=== PATIENT | male | born 1965 | race Caucasian/White ===

== ENCOUNTER 2019-10-13 08:39 | Observation (INO) ==
--- NOTE | 2019-10-13 08:49 | Emergency Department Note ---
ED Disposition Clinical Impression: Angina pectoris Disposition: Admitted as Observation Condition on Discharge: Good Referrals: Provider,Referral, [Referring] - - Critical Care Critical Care Time: No Attestation: On , the high probability of a clinically significant, sudden or life threatening deterioration of the following system(s) required my full and direct attention, intervention and personal management. The time I documented below is in addition to time spent performing reported procedures but includes the following listed in this critical care notation. Medical Decision Making - Malcolm Inquiry Pt receiving controlled substance: No Vital Signs: 10/13/19 08:49 10/13/19 09:24 10/13/19 09:44 Temperature 98.7 F Temperature Source Oral Pulse Rate [Right Radial] 91 H 81 79 Respiratory Rate 18 Blood Pressure [Right Arm] 146/85 H 128/76 134/84 Blood Pressure Mean [Right Arm] 105 93 100 Blood Pressure Source [Right Arm] Automatic Cuff Automatic Cuff Automatic Cuff Blood Pressure Position [Right Arm] Sitting Sitting Sitting 02 Sat by Pulse Oximetry 97 94 L 95 Oxygen Delivery Method Room Air Room Air 10/13/19 11:20 Temperature Temperature Source Pulse Rate [Right Radial] 82 Respiratory Rate Blood Pressure [Right Arm] 126/80 Blood Pressure Mean [Right Arm] 95 Blood Pressure Source [Right Arm] Automatic Cuff Blood Pressure Position [Right Arm] Sitting 02 Sat by Pulse Oximetry 96 Oxygen Delivery Method Room Air - Lab Data Lab Results 10/13/19 08:45: WBC 8.9, RBC 5.94, Hgb 17.6, Hct 52.7 H, MCV 88.8, MCH 29.6, MCHC 33.4, RDW 13.6, Plt Count 212, MPV 10.2, Neut % (Auto) 67.4, Lymph % (Auto) 20.4, Clinch % (Auto) 5.4, Eos % (Auto) 5.9, Baso % (Auto) 0.9, Neut # (Auto) 6.0, Lymph # (Auto) 1.8, Clinch # (Auto) 0.5, Eos # (Auto) 0.5 H, Baso # (Auto) 0.1 10/13/19 08:45: Sodium 141, Potassium 4.1, Chloride 100, Carbon Dioxide 30, Anion Gap 15.1 H, BUN 13, Creatinine 1.48 H, Estimated Creat Clear 73, Estimated GFR 50 L, Est GFR ( Amer) 60, Glucose 180 H, Calcium 9.9, Troponin I < 0.02 10/13/19 12:00: Troponin I < 0.02 Result diagrams: 10/13/19 08:45 10/13/19 08:45 Orders (Tests/Meds): ED MEDICATIONS Discontinued Medications Generic Name Dose Route Start Last Admin Trade Name Daina PRN Reason Stop Dose Admin Aspirin 324 mg 10/13/19 08:58 10/13/19 09:05 Aspirin 81mg Chewable Tablet PO 10/13/19 08:59 324 mg ONCE ONE Administration ORDERS Category Date Time Status Troponin I Q3H Lab 10/13/19 15:00 Ordered - Radiology Data #1 Image(s): Chest Image Reviewed: Yes I reviewed the patient's radiology image atelect vs scar bases. s/p sternotomy/CABG - ECG Data Tracing #1 EKG interpreted by Chris Reynoso MD: Rhythm: sinus Rate: 83 [place]: normal Ectopy: Premature ventricular contraction Conduction: First-degree AV block ST Segment Changes: none T Wave Changes: none Q Waves: Inferior No evidence of acute ischemia or injury Baseline artifact present, but I consider the EKG adequate for accurate interpretation. No prior EKGs available for comparison. - Physician Consults Physician Consulted: RICHA Osorio, for Dr. Beal Time: 09:51 Reason -: Cardiology Eval/Care Comment/Response: To see patient in the emergency department. Patient seen by Edu who discussed case with Dr. Beal. Recommends second troponin, if negative, discharge to follow-up in their office next week. 12:00 PM: Edu returns to the emergency room. States Dr. Beal has reviewed patient's previous cath results and history and now feels he should get a cardiac catheterization. Patient agreeable. Edu request patient be admitted. Additional Consult: Farhan Time: 12:30 Reason -: Admission Comment/Response: Agrees to admit the patient to the hospital. We discussed the patient's clinical information, including history, exam, laboratory and radiology results and ED course. Per hospital procedure, I will write temporary bridge inpatient orders on the patient. Specific orders requested by the admitting physician: No antibiotics. Likely atelectasis. Medical Decision Narrative: Prior left heart catheterization: ANGIOGRAPHIC RESULTS: 1. The left main artery normal 2. The left anterior descending artery proximally has 30% stenoses and is then occluded immediately after medium sized first diagonal artery. The first diagonal artery has a proximal concentric 60% stenosis this is a 1.5 to 2 mm first diagonal artery. 3. The ramus intermedius is a 1.5 to 2 mm vessel and has mild luminal irregularities 4. The circumflex artery is a dominant vessel and gives rise to a small first obtuse marginal artery. The terminal obtuse marginal arteries long vessel and has a long concentric 70-80% stenosis at a 2 mm vessel. Distal to this area is a small stent which is patent. The terminal obtuse marginal arteries a long vessel 5 small in caliber. 5. The right coronary artery is probably codominant and proximally subtotally occluded 6. The HARRELL ventriculogram reveals mild left ventricular dilatation with reduced ejection fraction estimated at 40-45% 7. The left ventricular end-diastolic pressure 15 mmHg 8. The left internal mammary artery is a widely patent graft to the mid LAD. The remaining LAD is free of significant disease 9. The saphenous vein graft the circumflex artery is ostially occluded 10. The saphenous vein graft to the right coronary artery is a widely patent graft and supplies a long narrow caliber posterior descending artery IMPRESSION: 1. Coronary artery disease as described above 2. 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 Disease in a small diagonal artery and small caliber long terminal obtuse marginal artery 4. Mildly reduced ejection fraction 5. Normal to mildly elevated LVEDP PLAN: 1. Medical management 2. Risk factor modification 3. Maximize antianginal's <Electronically signed by Eleazar Beal MD in [place]> 08/18/17 0926 DAMIAN / KIA AT 0842 AT 0918 General Adult HPI - General Chief complaint: Chest Pain Stated complaint: CP Time Seen by Provider: 10/13/19 08:54 - History of Present Illness HPI narrative: States he developed chest pain at 1 AM. It woke him from sleep. It feels like pressure. He is chronically short of breath and his shortness of breath did not change. Nausea, but no vomiting. No diaphoresis or radiation. No treatment prior to arrival. States his chest pain has currently resolved, it went away about 7:30 AM. Prior to that it had been constant since onset. Also states that he has had a chest cold for couple of days, minimally productive cough without fever. Has coronary artery disease with prior [place], bypass surgery and multiple stents. He says he has had stents put in 3 or 4 times since his bypass surgery in 2012. He sees Dr. Beal. - Related Data Home Medications Medication Instructions Recorded Confirmed albuterol sulfate 90 mcg/actuation 2 puff INHALATION Q4H g 08/27/17 10/13/19 aerosol inhaler aspirin 81 mg tablet,delayed 81 mg PO QDAY 08/27/17 10/13/19 release clopidogrel 75 mg tablet 75 mg PO QDAY 08/27/17 10/13/19 esomeprazole magnesium 20 mg 20 mg PO QDAY cap 08/27/17 10/13/19 capsule,delayed release fenofibrate 54 mg tablet 54 mg PO QDAY 08/27/17 10/13/19 fluticasone 500 mcg-salmeterol 50 1 inh INHALATION Q12H 08/27/17 10/13/19 mcg/dose blistr powdr for inhalation furosemide 20 mg tablet 20 mg PO QDAY 08/27/17 10/13/19 glipizide 5 mg tablet, extended 5 mg PO QDAY 08/27/17 10/13/19 release 24 hr isosorbide mononitrate 30 mg 30 mg PO QDAY tab 08/27/17 10/13/19 tablet,extended release 24 hr magnesium 200 mg tablet 400 mg PO QDAY tab 08/27/17 10/13/19 metoprolol tartrate 50 mg tablet 50 mg PO BID 08/27/17 10/13/19 omega-3 fatty acids-fish oil 360 1 cap PO QDAY 08/27/17 10/13/19 mg-1,200 mg capsule rosuvastatin 20 mg tablet 20 mg PO QDAY 08/27/17 10/13/19 tiotropium bromide 18 mcg capsule 1 cap INHALATION QDAY 08/27/17 10/13/19 with inhalation device Azithromycin [Z-Reese 250mg Tab*] 250 mg PO UD DOSE PK 10/13/19 10/13/19 Fluticasone Propionate [Flonase 2 spr NS DAILY 10/13/19 10/13/19 50mcg nasal spray 16gm] Allergies Allergy/AdvReac Type Severity Reaction Status Date / Time Penicillins Allergy Verified 12/28/17 15:05 pcn Allergy Unknown Uncoded 08/18/17 15:13 [facility] History - Hepatitis A Screen Attestation statement:: This patient has been screened for Hepatitis A risk factors. I have reviewed the patient's past medical history: Yes Medical History: Reports:: Coronary Artery Disease, Diabetes Mellitus Type 2, Hypertension Comment: Chest Pain Laterality Cases: Bilateral: Other Other Surgeries: Yes: Angioplasty - Social History Smoking Status: Former smoker Alcohol Intake: never Alcohol Intake Frequency:: a few times a month Occupational Status: other Housing: house Family Hx:: Heart Attack, Coronary Artery Disease ROS Obtained: Yes All systems reviewed & no additional complaints - Constitutional Constitutional: Denies fever(s) - Cardiovascular Cardiovascular: Reports chest pain, Denies diaphoresis, Denies radiating jaw, neck or arm pain - Respiratory Respiratory: Yes cough, Yes dyspnea (Chronic), No pain with cough - Gastrointestinal Gastrointestingal: Reports: nausea. Denies: abdominal pain, diarrhea, vomiting Physical Exam - General General appearance: alert, in no apparent distress - Head Head exam: atraumatic, normocephalic - Eye Eye exam: Present: normal appearance, EOMI - ENT ENT exam: Present: mucous membranes moist - Neck Neck exam: Present: normal inspection, trachea midline - Chest Chest inspection: Present: normal inspection, symmetric chest wall rise - Respiratory Respiratory exam: Present: normal lung sounds bilaterally. Absent: respiratory distress - Cardiovascular Cardiovascular exam: Present: regular rate, normal rhythm, normal heart sounds, other (Sternotomy scar) - Abdominal Exam Abdominal exam: Present: soft. Absent: distention, tenderness - Extremities Exam Extremities exam: Present: normal inspection. Absent: pedal edema, calf tenderness - Neurological Exam Neurological exam: Present: alert, oriented X3 - Psychiatric Psychiatric exam: Present: normal affect, normal mood - Skin Skin exam: Present: warm, dry
[2019-10-13 09:13] LABS: Basophils # 0.1 K/mm3 (0-0.2); Basophils % 0.9 % (0.1-2.0); Eosinophils # 0.5 K/mm3 (0.0-0.4); Eosinophils % 5.9 % (0.1-12.0); Hematocrit 52.7 % (42.0-52.0); Hemoglobin 17.6 g/dL (14.1-18.0); Lymphocytes # 1.8 K/mm3 (0.7-4.5); Lymphocytes % 20.4 % (10-50); Mean Corpuscular HGB Conc 33.4 g/dL (31.8-35.4); Mean Corpuscular Volume 88.8 fl (80-94); Mean Platelet Volume 10.2 fl (7.4-10.4); Monocytes # 0.5 K/mm3 (0.1-1.0); Monocytes % 5.4 % (1.7-9.3); Neutrophils % 67.4 % (37.0-80.0); Platelet Count 212 K/mm3 (142-424); Red Blood Count 5.94 M/mm3 (4.60-6.20); Red Cell Distribution Width 13.6 % (11.5-17.5); White Blood Count 8.9 K/mm3 (4.8-10.8)
[2019-10-13 09:21] LABS: Anion Gap 15.1 mEq/L (5-15); Blood Urea Nitrogen 13 mg/dL (7-18); Calcium 9.9 mg/dL (8.5-10.1); Carbon Dioxide 30 mmol/L (21.0-32.0); Chloride 100 mmol/L (98-107); Glucose 180 mg/dL (74-106); Sodium 141 mmol/L (137-145)
--- NOTE | 2019-10-13 10:57 | Consult Report ---
History of Present Illness Consult date: 10/13/19 Consult reason: chest pain Chief complaint: chest pain Additional Medical History:: 1. CAD A. CABG X 4 in 2012 B. coronary stenting in 2013, 2014 and 2015 C. [facility], 07/2017 ANGIOGRAPHIC RESULTS: 1. The left main artery normal 2. The left anterior descending artery proximally has 30% stenoses and is then occluded immediately after medium sized first diagonal artery. The first diagonal artery has a proximal concentric 60% stenosis this is a 1.5 to 2 mm first diagonal artery. 3. The ramus intermedius is a 1.5 to 2 mm vessel and has mild luminal irregularities 4. The circumflex artery is a dominant vessel and gives rise to a small first obtuse marginal artery. The terminal obtuse marginal arteries long vessel and has a long concentric 70-80% stenosis at a 2 mm vessel. Distal to this area is a small stent which is patent. The terminal obtuse marginal arteries a long vessel 5 small in caliber. 5. The right coronary artery is probably codominant and proximally subtotally occluded 6. The HARRELL ventriculogram reveals mild left ventricular dilatation with reduced ejection fraction estimated at 40-45% 7. The left ventricular end-diastolic pressure 15 mmHg 8. The left internal mammary artery is a widely patent graft to the mid LAD. The remaining LAD is free of significant disease 9. The saphenous vein graft the circumflex artery is ostially occluded 10. The saphenous vein graft to the right coronary artery is a widely patent graft and supplies a long narrow caliber posterior descending artery IMPRESSION: 1. Coronary artery disease as described above 2. 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 Disease in a small diagonal artery and small caliber long terminal obtuse marginal artery 4. Mildly reduced ejection fraction 5. Normal to mildly elevated LVEDP PLAN: 1. Medical management 2. Risk factor modification 3. Maximize antianginal's 2. DM, type 2 3. HTN 4. HLD 5. Ex smoker A. CTA of the chest, 2013, was negative for PE. It did have the following findings: FINDINGS: Imaging of the lower neck and axilla is unremarkable. Patient is status post median sternotomy apparently for a MARTINEZ takedown. Coronary artery stent is also noted. Heart size within normal limits. Thoracic aorta is unremarkable. There are scattered normal sized noncalcified lymph nodes within the mediastinum and william are also mildly enlarged lymph nodes including left lower hilum, subcarinal, position, right mid hilum. Limited imaging of the upper abdomen is notable for fatty infiltration of the liver and borderline splenomegaly. Benign cyst noted on the right kidney. No evidence of aggressive osseous process. Enhancement of the pulmonary arteries is suboptimal. I see no evidence of ulnar emboli.. There is scattered irregular areas of ground glass disease throughout the entirety of the right lung field but most prominently within the right upper lobe. There is also occasional small nodular disease. There are some minimal scattered areas of ground glass disease in the left lung field. No pleural effusions. IMPRESSION: 1. No evidence of pulmonary emboli. 2. Status post CABG and coronary artery stenting. 3. Predominantly groundglass airspace disease throughout the right lung field with minimal disease left lung field. Occasional small nodular disease in the right lung field. Appearance is most suggestive of infectious/inflammatory pneumonitis/pneumonia. Recommend clinical and laboratory correlation 4. Enlarged hilar, and subcarinal lymphadenopathy. Probably reactive, related to the airspace disease. Recommend followup enhanced CT the chest in about 2 months after a period therapy for presumed infectious pneumonia. 5. Borderline splenomegaly and fatty infiltration of the liver noted. 6. ABnormal EKG, first degree AV block with inferior infarct pattern History of present illness: States he developed chest pain at 1 AM. It woke him from sleep. It feels like pressure. He is chronically short of breath and his shortness of breath did not change. Nausea, but no vomiting. No diaphoresis or radiation. No treatment prior to arrival. States his chest pain has currently resolved, it went away about 7:30 AM. Prior to that it had been constant since onset. Also states that he has had a chest cold for couple of days, minimally productive cough without fever. Has coronary artery disease with prior [place], bypass surgery and multiple stents. He says he has had stents put in 3 or 4 times since his bypass surgery in 2013. He sees Dr. Beal. The above per Dr. Reynoso Denies any recent exertional symptoms. [facility] History Medical History: Reports:: Coronary Artery Disease, Diabetes Mellitus Type 2, Hypertension Denies:: Diabetes Mellitus Type 1 *Have you ever received a pneumonia vaccine?: Yes *Have you received a flu vaccine this season?: No Laterality Cases: Bilateral: Other Other Surgeries: Yes: Angioplasty - *Social History Smoking Status: Former smoker Tobacco Type: cigarettes Alcohol Intake: never Alcohol Intake Frequency:: a few times a month *Occupational Status:: employed Housing: house *Travel in the last 8 weeks: None Family Hx:: Heart Attack, Coronary Artery Disease Meds Home Medications Medication Instructions Recorded Confirmed Type albuterol sulfate 90 mcg/actuation 2 puff INHALATION Q4H g 08/27/17 10/13/19 History aerosol inhaler aspirin 81 mg tablet,delayed 81 mg PO QDAY 08/27/17 10/13/19 History release clopidogrel 75 mg tablet 75 mg PO QDAY 08/27/17 10/13/19 History fenofibrate 54 mg tablet 54 mg PO QDAY 08/27/17 10/13/19 History fluticasone 500 mcg-salmeterol 50 1 inh INHALATION Q12H 08/27/17 10/13/19 History mcg/dose blistr powdr for inhalation furosemide 20 mg tablet 20 mg PO QDAY 08/27/17 10/13/19 History glipizide 5 mg tablet, extended 5 mg PO BID 08/27/17 10/13/19 History release 24 hr isosorbide mononitrate 30 mg 30 mg PO QDAY tab 08/27/17 10/13/19 History tablet,extended release 24 hr metoprolol tartrate 50 mg tablet 50 mg PO BID 08/27/17 10/13/19 History rosuvastatin 20 mg tablet 20 mg PO QDAY 08/27/17 10/13/19 History tiotropium bromide 18 mcg capsule 1 cap INHALATION QDAY 08/27/17 10/13/19 History with inhalation device Allergies Allergy/AdvReac Type Severity Reaction Status Date / Time Penicillins Allergy Unknown Verified 10/13/19 13:54 allergy reaction Review of Systems - Review of Systems Review of systems:: pertinent systems reviewed and negative unless documented below - *Cardiovascular Reports chest pain, Denies shortness of breath - *Respiratory Denies shortness of breath - *Gastrointestinal Denies loose stools - *Genitourinary Denies blood in urine - *Musculoskeletal Denies joint pain, Denies back pain - *Neurologic Denies dizziness, Denies weakness Exam Vital signs and Labs for Last 24 Hours: Temp Pulse Resp BP Pulse Ox 98.7 F 79 18 134/84 95 10/13/19 08:49 10/13/19 09:44 10/13/19 08:49 10/13/19 09:44 10/13/19 09:44 Laboratory Results - last 24 hr 10/13/19 08:45: WBC 8.9, RBC 5.94, Hgb 17.6, Hct 52.7 H, MCV 88.8, MCH 29.6, MCHC 33.4, RDW 13.6, Plt Count 212, MPV 10.2, Neut % (Auto) 67.4, Lymph % (Auto) 20.4, Stanley % (Auto) 5.4, Eos % (Auto) 5.9, Baso % (Auto) 0.9, Neut # (Auto) 6.0, Lymph # (Auto) 1.8, Stanley # (Auto) 0.5, Eos # (Auto) 0.5 H, Baso # (Auto) 0.1 10/13/19 08:45: Sodium 141, Potassium 4.1, Chloride 100, Carbon Dioxide 30, Anion Gap 15.1 H, BUN 13, Creatinine 1.48 H, Estimated Creat Clear 73, Estimated GFR 50 L, Est GFR ( Amer) 60, Glucose 180 H, Calcium 9.9, Troponin I < 0.02 I & O for Last 24 hours: Intake & Output 10/10/19 10/11/19 10/12/19 10/13/19 11:59 11:59 11:59 11:59 Weight 200 lb - *Routine HEENT Exam Head: Present: normocephalic Eye: Present: EOMI, PERRL ENT: Present: mucous membranes moist - *Routine Neck Exam Present: supple. Absent: JVD, carotid bruit - *Routine Respiratory Exam Present: CTA bilaterally. Absent: accessory muscle use, rales, rhonchi, wheezes - *Routine Cardiovascular Exam Present: RRR. Absent: murmur, gallop, rubs - *Routine Abdominal Exam Present: soft. Absent: tenderness, distended, guarding - *Routine Extremities Exam Absent: edema, calf tenderness - *Routine Neurological Exam Present: alert, oriented X3, moving all extremities Assessment and Plan (1) Chest pain Current visit: Yes Status: Acute Category: Medical Code(s): R07.9 - Chest pain, unspecified (2) History of coronary artery bypass graft Current visit: Yes Status: Acute Category: Surgical Code(s): Z95.1 - Presence of aortocoronary bypass graft (3) History of coronary artery stent placement Current visit: Yes Status: Acute Category: Surgical Code(s): Z95.5 - Presence of coronary angioplasty implant and graft (4) Coronary arteriosclerosis Current visit: No Status: Acute Category: Medical Code(s): I25.10 - Atherosclerotic heart disease of [place] coronary artery without angina pectoris (5) Diabetes 1.5, managed as type 2 Current visit: No Status: Acute Category: Medical Code(s): E10.9 - Type 1 diabetes mellitus without complications (6) Hyperlipemia Current visit: No Status: Acute Category: Medical Code(s): E78.5 - Hyperlipidemia, unspecified - Assessment and plan all Dx Assessment and Plan for all problems:: 1. Chest pain for several hours that resolved spontaneously. Unaffected by activity or eating. Initial troponin normal and EKG without acute ST segment changes. Last cardiac cath in 2017 with recommendation for medical therapy due to small vessel disease. Discussed with Dr. Beal, after reviewing [facility], and would recommend admission for observation and cardiac cath due to significant CAD history and intervention with pt having atypical symptoms. Continue both ASA and plavix along with beta zohaib, statin and isosorbide 2. Further recommendations to follow pending above results.
--- NOTE | 2019-10-13 15:25 | Pharmacy Consult Notes ---
[facility] Pharmacy VTE Monitoring - Patient Demographics Admission date: 10/13/19 Report Date: 10/13/19 Time: 15:24 Allergies/Adverse Reactions: Patient Allergies Penicillins Allergy (Verified 10/13/19 13:54) Unknown allergy reaction Height: 1.63 m Weight: 92.136 kg Patient Problems: Current Active Problems Chest pain (Acute) History of coronary artery bypass graft (Acute) History of coronary artery stent placement (Acute) Angina pectoris (Acute ~08/17/17) - VTE Risk Labs: VTE Related Lab Results Hgb 17.6 g/dL (14.1-18.0) 10/13/19 08:45 Hct 52.7 % (42.0-52.0) H 10/13/19 08:45 Plt Count 212 K/mm3 (142-424) 10/13/19 08:45 BUN 13 mg/dL (7-18) 10/13/19 08:45 Creatinine 1.48 mg/dL (0.70-1.30) H 10/13/19 08:45 Estimated Creat Clear 73 mL/min (50-200) 10/13/19 08:45 VTE Score: 4 VTE Risk Level: Low Risk - Prophylaxis VTE Prophylaxis Ordered?: Yes Types of VTE Prophylaxis: TEDS Knee High Location of Applied Device: Bilateral Lower Extremeties Pharmacologic Type: Other (clopidogrel)
--- NOTE | 2019-10-13 16:18 | History & Physical Report ---
*Admission Date: 10/13/19 *Chief complaint: Chest tightness *History of present illness: 54-year-old male with coronary artery disease presented emergency department over 6 hours after awakening from sleep with chest tightness that was nonradiating. He has chronic dyspnea from COPD and heavy cigarette use from which he stopped in 2004. Chest pain lasted for approximately 6-1/2 hours before resolving spontaneously. In the emergency department he was symptom- free. Work-up was begun and a first troponin was negative. Cardiology was consulted and evaluated the patient in the emergency department and due to his extensive coronary artery disease history and symptoms consistent with unstable angina patient was admitted for further observation and anticipated left heart catheterization to be performed tomorrow. Currently he is chest pain-free. [facility] History I have reviewed the patient's past medical history: Yes Medical History: Reports:: Coronary Artery Disease, Diabetes Mellitus Type 2, Hypertension Denies:: Diabetes Mellitus Type 1 *Have you ever received a pneumonia vaccine?: Yes *Have you received a flu vaccine this season?: No Laterality Cases: Bilateral: Other Other Surgeries: Yes: Angioplasty - *Social History Smoking Status: Former smoker Tobacco Type: cigarettes Alcohol Intake: never Alcohol Intake Frequency:: a few times a month *Occupational Status:: employed Housing: house *Travel in the last 8 weeks: None Family Hx:: Heart Attack, Coronary Artery Disease Review of Systems - Review of Systems Review of systems:: pertinent systems reviewed and negative unless documented below - Constitutional Denies body ache(s), Denies chills, Denies fever(s), Denies headache(s), Denies night sweats, Denies weakness - ENT Reports nasal congestion - *Respiratory Reports chest congestion, Reports cough - *Gastrointestinal Denies abdominal pain - *Neurologic Denies dizziness, Denies weakness Meds Home Medications Medication Instructions Recorded Confirmed Type albuterol sulfate 90 mcg/actuation 2 puff INHALATION Q4HP PRN g 08/27/17 10/13/19 History aerosol inhaler aspirin 81 mg tablet,delayed 81 mg PO DAILY 08/27/17 10/13/19 History release clopidogrel 75 mg tablet 75 mg PO DAILY 08/27/17 10/13/19 History fenofibrate 54 mg tablet 54 mg PO DAILY 08/27/17 10/13/19 History fluticasone 500 mcg-salmeterol 50 1 inh INHALATION Q12H 08/27/17 10/13/19 History mcg/dose blistr powdr for inhalation furosemide 20 mg tablet 20 mg PO DAILYP PRN 08/27/17 10/13/19 History glipizide 5 mg tablet, extended 5 mg PO BID 08/27/17 10/13/19 History release 24 hr isosorbide mononitrate 30 mg 30 mg PO DAILY tab 08/27/17 10/13/19 History tablet,extended release 24 hr metoprolol tartrate 50 mg tablet 50 mg PO BID 08/27/17 10/13/19 History rosuvastatin 20 mg tablet 20 mg PO QDAY 08/27/17 10/13/19 History Esomeprazole Magnesium 40 mg PO DAILY 10/13/19 10/13/19 History Fluticasone Propionate 2 sprays NS DAILYP PRN 10/13/19 10/13/19 History Allergies Allergy/AdvReac Type Severity Reaction Status Date / Time Penicillins Allergy Unknown Verified 10/13/19 13:54 allergy reaction Exam Vital signs and Labs for Last 24 Hours: Temp Pulse Resp BP Pulse Ox 97.7 F 70 16 103/55 L 97 10/13/19 16:00 10/13/19 16:00 10/13/19 16:00 10/13/19 16:00 10/13/19 16:00 Laboratory Results - last 24 hr 10/13/19 08:45: WBC 8.9, RBC 5.94, Hgb 17.6, Hct 52.7 H, MCV 88.8, MCH 29.6, MCHC 33.4, RDW 13.6, Plt Count 212, MPV 10.2, Neut % (Auto) 67.4, Lymph % (Auto) 20.4, [place] % (Auto) 5.4, Eos % (Auto) 5.9, Baso % (Auto) 0.9, Neut # (Auto) 6.0, Lymph # (Auto) 1.8, [place] # (Auto) 0.5, Eos # (Auto) 0.5 H, Baso # (Auto) 0.1 10/13/19 08:45: Sodium 141, Potassium 4.1, Chloride 100, Carbon Dioxide 30, Anion Gap 15.1 H, BUN 13, Creatinine 1.48 H, Estimated Creat Clear 73, Estimated GFR 50 L, Est GFR ( Amer) 60, Glucose 180 H, Calcium 9.9, Troponin I < 0.02 10/13/19 12:00: Troponin I < 0.02 10/13/19 15:08: Troponin I < 0.02 I & O for Last 24 hours: Intake & Output 10/11/19 10/12/19 10/13/19 10/14/19 11:59 11:59 11:59 11:59 Weight 200 lb 203 lb 2 oz - *Routine HEENT Exam Head: Present: normocephalic Eye: Present: EOMI, PERRL ENT: Present: mucous membranes moist - *Routine Neck Exam Present: supple. Absent: lymphadenopathy - *Routine Respiratory Exam Comments: Distant breath sounds throughout all lung white with occasional expiratory wheeze - *Routine Cardiovascular Exam Present: RRR - *Routine Abdominal Exam Present: soft, normoactive bowel sounds. Absent: tenderness - *Routine Extremities Exam Absent: cyanosis, clubbing, edema - *Routine Skin Exam Present: warm. Absent: rash - *Routine Neurological Exam Present: alert, oriented X3 Assessment and Plan (1) Chest pain Current visit: Yes Status: Acute Category: Medical Code(s): R07.9 - Chest pain, unspecified (2) History of coronary artery bypass graft Current visit: Yes Status: Acute Category: Surgical Code(s): Z95.1 - Presence of aortocoronary bypass graft (3) History of coronary artery stent placement Current visit: Yes Status: Acute Category: Surgical Code(s): Z95.5 - Presence of coronary angioplasty implant and graft (4) Coronary arteriosclerosis Current visit: No Status: Acute Category: Medical Code(s): I25.10 - Atherosclerotic heart disease of [place] coronary artery without angina pectoris (5) Diabetes 1.5, managed as type 2 Current visit: No Status: Acute Category: Medical Code(s): E10.9 - Type 1 diabetes mellitus without complications (6) Hyperlipemia Current visit: No Status: Acute Category: Medical Code(s): E78.5 - Hyperlipidemia, unspecified - Assessment and plan all Dx Assessment and Plan for all problems:: 1. Plan for left heart catheterization tomorrow 2. Patient will be given essential home medications
--- NOTE | 2019-10-14 07:20 | Progress Note ---
Internal Medicine - PN: Subj *Date: 10/14/19 *Time: 07:19 Interval history: Patient reports feeling well. He had no chest pain or tightness overnight. He does report persistent chest congestion with cough. Cough was nonproductive overnight. He is scheduled for left heart catheterization today Exam Vital signs and Labs for Last 24 Hours: Temp Pulse Resp BP Pulse Ox 97.9 F 61 17 102/43 L 98 10/14/19 04:00 10/14/19 04:00 10/14/19 04:00 10/14/19 04:00 10/14/19 04:00 Laboratory Results - last 24 hr 10/13/19 08:45: WBC 8.9, RBC 5.94, Hgb 17.6, Hct 52.7 H, MCV 88.8, MCH 29.6, MCHC 33.4, RDW 13.6, Plt Count 212, MPV 10.2, Neut % (Auto) 67.4, Lymph % (Auto) 20.4, [place] % (Auto) 5.4, Eos % (Auto) 5.9, Baso % (Auto) 0.9, Neut # (Auto) 6.0, Lymph # (Auto) 1.8, [place] # (Auto) 0.5, Eos # (Auto) 0.5 H, Baso # (Auto) 0.1 10/13/19 08:45: Sodium 141, Potassium 4.1, Chloride 100, Carbon Dioxide 30, Anion Gap 15.1 H, BUN 13, Creatinine 1.48 H, Estimated Creat Clear 73, Estimated GFR 50 L, Est GFR ( Amer) 60, Glucose 180 H, Calcium 9.9, Troponin I < 0.02 10/13/19 12:00: Troponin I < 0.02 10/13/19 15:08: Troponin I < 0.02 10/13/19 20:24: POC Glucose 125 H 10/14/19 05:53: POC Glucose 171 H I & O for Last 24 hours: Intake & Output 10/11/19 10/12/19 10/13/19 10/14/19 11:59 11:59 11:59 11:59 Intake Total 120 / 120 Balance 120 / 120 Weight 200 lb 203 lb 2.002 oz Narrative: He looks well. Lungs have some expiratory wheezes posteriorly but anteriorly are clear. Heart has a regular rate and rhythm. Extremities have no edema Assessment and Plan (1) Chest pain Current visit: Yes Status: Acute Category: Medical Code(s): R07.9 - Chest pain, unspecified (2) History of coronary artery bypass graft Current visit: Yes Status: Acute Category: Surgical Code(s): Z95.1 - Presence of aortocoronary bypass graft (3) History of coronary artery stent placement Current visit: Yes Status: Acute Category: Surgical Code(s): Z95.5 - Presence of coronary angioplasty implant and graft (4) Coronary arteriosclerosis Current visit: No Status: Acute Category: Medical Code(s): I25.10 - Atherosclerotic heart disease of [place] coronary artery without angina pectoris (5) Diabetes 1.5, managed as type 2 Current visit: No Status: Acute Category: Medical Code(s): E10.9 - Type 1 diabetes mellitus without complications (6) Hyperlipemia Current visit: No Status: Acute Category: Medical Code(s): E78.5 - Hyperlipidemia, unspecified - Assessment and plan all Dx Assessment and Plan for all problems:: Left heart catheterization today.
--- NOTE | 2019-10-14 11:45 | Progress Note ---
Subjective Date: 10/14/19 Time: 11:00 Principal diagnosis: Chest pain Interval history: 54-year-old male admitted to [facility] for chest pain. Patient is doing well. Patient underwent a left heart catheterization this a.m. with access through the right groin. No intervention was required. We will continue medical management for his coronary artery disease. Patient is resting quietly with right leg straight. No bleeding or redness or swelling noted of the right groin area. Patient denies chest pain or shortness of breath. Instructed to leave the right leg straight due to access earlier. Patient denies cough or fever. Lung sounds are clear. Vital signs are stable. child monitor reveals sinus rhythm. ANGIOGRAPHIC RESULTS The left main artery Normal The left anterior descending artery Gives rise to a high first diagonal artery and is then occluded. The first diagonal artery has an ostial 60 to 70% stenosis and is a 2 mm vessel in diameter. The circumflex artery Gives rise to a small to medium sized ramus intermedius which is patent and has proximal and mid vessel 20% stenoses. The circumflex artery itself has a mid vessel 40% stenosis while the terminal obtuse marginal artery is patent The right coronary artery Is codominant and proximally occluded The HARRELL ventriculogram reveals Reduced at 45% The left ventricular end-diastolic pressure 10 mmHg The MARTINEZ to the LAD is widely patent The saphenous vein graft to the left coronary artery is ostially occluded The saphenous vein graft to the posterior descending artery of the right coronary artery is widely patent with minimal [id number] 10 to 20% stenoses IMPRESSION Coronary artery disease as described above Mildly reduced ejection fraction is described above which is stable Normal left ventricular end-diastolic pressure PLAN 1. Continue medical management No change in medication regimen at this time. Echocardiogram results are pending at this time. Patient may be discharged later this evening if doing well. Instructed patient no heavy lifting or strenuous activity until follow-up with cardiology in 1 week. Instructed patient to notify cardiology if right groin cath site develops drainage or swelling. Patient instructed to notify cardiology or return to the emergency room if develops chest pain or shortness of breath. Recommend patient to follow-up in cardiology clinic in 1 week. Thank you for letting cardiology participate in the care of this patient. Exam Vital signs and Labs for Last 24 Hours: Temp Pulse Resp BP Pulse Ox 97.7 F 77 20 104/54 L 95 10/14/19 07:42 10/14/19 07:42 10/14/19 07:42 10/14/19 07:42 10/14/19 08:00 Laboratory Results - last 24 hr 10/13/19 12:00: Troponin I < 0.02 10/13/19 15:08: Troponin I < 0.02 10/13/19 16:51: POC Glucose 195 H 10/13/19 20:24: POC Glucose 125 H 10/14/19 05:53: POC Glucose 171 H 10/14/19 11:29: POC Glucose 157 H I & O for Last 24 hours: Intake & Output 10/11/19 10/12/19 10/13/19 10/14/19 23:59 23:59 23:59 23:59 Intake Total 120 / 120 Balance 120 / 120 Weight 203 lb 2 oz 203 lb 2.002 oz - Constitutional no acute distress, morbidly obese, cooperative - *Routine HEENT Exam Head: Present: normocephalic - *Routine Neck Exam Present: supple, full ROM, normal carotid upstroke. Absent: JVD, carotid bruit, lymphadenopathy - Routine Chest/Breast/Axilla Exam Chest wall: Absent: tenderness, mass, pacemaker - *Routine Respiratory Exam Present: CTA bilaterally. Absent: decreased breath sounds, rales, respiratory distress, rhonchi, stridor, wheezes, crackles, diminished air movement - *Routine Cardiovascular Exam Present: RRR, Normal S1, Normal S2. Absent: murmur, gallop, click, irregular rhythm, JVD - *Routine Abdominal Exam Present: soft, normoactive bowel sounds. Absent: distended, firm - *Routine Extremities Exam Present: full ROM, pulses intact, normal capillary refill. Absent: cyanosis, clubbing, edema, Jarocho's sign - *Routine Skin Exam Present: intact, dry, warm. Absent: erythema, lesions - *Routine Neurological Exam Present: alert, oriented X3, CN II-XII intact, normal speech - Routine Psychiatric Exam Present: normal affect, cooperative. Absent: suicidal ideation, depressed Progress Note: A&P (1) Chest pain Status: Acute Current Visit: Yes (2) History of coronary artery bypass graft Status: Acute Current Visit: Yes (3) History of coronary artery stent placement Status: Acute Current Visit: Yes (4) Coronary arteriosclerosis Status: Acute Current Visit: No (5) Diabetes 1.5, managed as type 2 Status: Acute Current Visit: No (6) Hyperlipemia Status: Acute Current Visit: No Assessment and Plan for All Diagnoses:: Plan: 1. Echocardiogram results pending at this time. 2. LHC performed. No intervention required. Medical management. 3. Continue current medication regimen. 4. No strenous activity or heaving lifting until follow up with Cardiology. 5. Please notify Cardiology if pt develops chest pain or shortness of breath or if pt becomes clinically hemodynamic unstable. 6. Please notify Cardiology if pt's right groin cath site develops bleeding, increase pain or swelling. 7. Follow up in Cardiology clinic in one week after discharge from facility. 8. LDL goal<55. Pt is on a statin.
[2019-10-14 13:47] VITALS: BP 106/55
--- NOTE | 2019-10-16 07:50 | Electrocardiograph Report ---
APPROVED REPORT Exam: Resting ECG HR:83 bpm ECG Measurements Heart Rate 83 AXES SC 264 P 56 QRSd 100 QRS 27 QT 372 T21 QTc 437 <Conclusion> Sinus rhythm with 1st degree AV block with occasional premature ventricular complexes Inferior infarct, age undetermined Abnormal ECG Electronically signed by : Alen Dugan, 10/16/2019 07:50:07
== END 2019-10-14 14:44 | disposition home or self-care (01) ==
LOC: 2ND 08:39 → ER 08:39 → 2ND 13:35
PROVIDERS: ADMIT Family Medicine; ATTEND Family Medicine
CPT/HCPCS: 36415; 71020; 71046; 80048; 82962; 84484; 85025; 93005; 93459; 94640; 94761; 99152; 99153; 99284; C1725; C1769; C1894; G0378; J1644; Q9967

== ENCOUNTER → 2019-10-31 11:30 | Outpatient (CLI) | payer MEDICARE, MEDICAID, SELFPAY ==
--- NOTE | 2019-10-31 11:37 | CA_ITS ---
APPROVED REPORT EXAM: Comprehensive 2D, Doppler, and color-flow Echocardiogram Sustainable Systems Analyst: Saida Reis RDCS Ht: 5 ft 5 in Wt: 204lbs BSA: 1.99 BP: 111/65 mmHg Indications: CM,CAD,DM,HTN,HLP 2D Dimensions LVOT 1.97 cm (M/F) 1.5-2.5 M-Mode Dimensions RVDd 2.92 cm (0.9-2.6) LVDd 5.76 cm (3.5-5.7) LVDs 4.40 cm (3.5-5.7) IVSd 0.97 cm (0.6-1.1) PWd 0.76 cm (0.6-1.1) EF (Teich) 46.50% EPSs 3.92 cm FS 23.60% EDV (Teich) 163.90 mL ESV (Teich) 87.70 mL LV Diastology E/A Ratio 0.81 Mitral Valve MV A Velocity 57.00 (40-130 cm/s) Left Ventricle Left atrium is mildly enlarged, left ventricle is normal size, mild concentric left ventricular hypertrophy, visually estimated ejection fraction 50%, endocardial surfaces are poorly visualized, however there appears to be inferior basal wall moderate hypokinesis. Grade 1 diastolic dysfunction seen without tissue Doppler evidence of raise left atrial pressure. Right Ventricle Right atrium and right ventricular normal size and contractility. Aortic Valve Aortic valve is minimally thickened and fibrosed, there is no aortic stenosis or aortic insufficiency. Mitral Valve Mitral valve grossly normal, there is mild mitral regurgitation. Tricuspid Valve Tricuspid valve is grossly normal, there is mild tricuspid regurgitation. Tricuspid regurgitation jet velocity is inadequate for calculation of the right ventricular systolic pressure. Pulmonic Valve Pulmonic valve is poorly visualized. Great Vessels Aortic root is normal size. Pericardium No significant pericardial effusion noted. Conclusion 1. Enlarged left atrium, normal left ventricular size, mild concentric left ventricular hypertrophy, visually estimated ejection fraction 50%, endocardial surfaces are poorly visualized, however there appears to be hypokinesis involving the inferior basal wall. Grade 1 diastolic dysfunction seen without tissue Doppler evidence of raise left atrial pressure. 2. Mild mitral and tricuspid regurgitation. 3. No significant pericardial effusion noted. Electronically signed by : Bashir Islas, 11/01/2019 05:48:23
== END ==
PROVIDERS: PCP Family Medicine; Visit Provider Internal Medicine
DX: I25.10 Atherosclerotic heart disease of native coronary artery without angina pectoris (principal)
CPT/HCPCS: 93306

== ENCOUNTER → 2020-03-08 10:05 | Outpatient (CLI) | payer MEDICARE, MEDICAID, SELFPAY ==
[2020-03-08 11:10] LABS: Chloride 105 mmol/L (98-107); Sodium 138 mmol/L (136-145)
[2020-03-08 11:11] LABS: Potassium 4.1 mmoL/L (3.5-5.1)
[2020-03-08 11:13] LABS: Alanine Aminotransferase 21 U/L (12-78); Albumin Level 4.1 g/dl (3.5-5.0); Alkaline Phosphatase 90 U/L (38-126); Anion Gap 10.1 mEq/L (5-15); Aspartate Amino Transferase 20 U/L (17-59); Bilirubin,Direct 0.1 mg/dl (0.0-0.4); Bilirubin,Indirect 0.4 mg/dL (0.0-0.9); Bilirubin,Total 0.5 mg/dl (0.2-1.3); Bilirubin,Unconjugated 0.4 mg/dL (0.0-1.1); Blood Urea Nitrogen 14 mg/dl (9-20); Carbon Dioxide 27 mmol/L (22.0-30.0); Cholesterol 154 mg/dl (140-200); Estimated Glomerular Filt Rate 88 ml/min (>60); GFR (African American) 106 ML/MIN (>60); Total Protein,Serum 6.6 g/dl (6.3-8.2); Triglycerides 184 mg/dl (30-150); VLDL Cholesterol 37 mg/dL (0-40)
[2020-03-08 11:14] LABS: Calcium 9.3 mg/dl (8.4-10.2); Chol/HDL Ratio 3.8 (1-3.5); Glucose 233 mg/dl (74-100); HDL Cholesterol 41 mg/dl (40-60)
[2020-03-08 11:25] LABS: Direct LDL Cholesterol 95.53 mg/dL (100-129)
== END ==
PROVIDERS: Visit Provider Internal Medicine Cardiovascular Disease
DX: E11.9 Type 2 diabetes mellitus without complications (principal); E66.09 Other obesity due to excess calories; E78.2 Mixed hyperlipidemia; I25.10 Atherosclerotic heart disease of native coronary artery without angina pectoris; I42.9 Cardiomyopathy, unspecified; I50.9 Heart failure, unspecified; Z95.1 Presence of aortocoronary bypass graft; Z95.5 Presence of coronary angioplasty implant and graft; Z79.84 Long term (current) use of oral hypoglycemic drugs
CPT/HCPCS: 36415; 80048; 80061; 80076

== ENCOUNTER 2020-09-21 19:16 | Emergency (ER) | payer MEDICARE, MEDICAID, SELFPAY ==
[2020-09-21 19:29] VITALS: BP 137/58; PULSE 89; RESP 18; TEMP 36.5; O2SAT 96; BMI 35.2
[2020-09-21 19:30] VITALS: BP 137/58; PULSE 89; RESP 18; TEMP 36.5; O2SAT 96; BMI 34.9
--- NOTE | 2020-09-21 19:33 | HMH.EDUTC ---
[facility] [place] Clinical Impression: UTI (urinary tract infection) Qualifiers: Urinary tract infection type: acute cystitis Hematuria presence: with hematuria Qualified Code(s): N30.01 - Acute cystitis with hematuria Constipation Qualifiers: Constipation type: unspecified constipation type Qualified Code(s): K59.00 - Constipation, unspecified Disposition: Home, Self-Care Condition on Discharge: Good Instructions: DI for Urinary Tract Infection (UTI) Additional Instructions: Take antibiotics as directed. Follow up with PCP next week. Prescriptions: Sulfamethoxazole/Trimethoprim [Bactrim DS tablet] 1 each PO BID 10 Days #20 tab Transmission Status: Pending to [facility] Referrals: Lenin Mullen MD [Primary Care Provider] - Time of Disposition: 20:11 Medical Decision Making - Malcolm Inquiry Pt receiving controlled substance: No Vital Signs: 09/21/20 19:29 09/21/20 19:30 Temperature 97.7 F 97.7 F Temperature Source Oral Oral Pulse Rate [Right] 89 89 Respiratory Rate 18 18 Blood Pressure [Right Arm] 137/58 L 137/58 L Blood Pressure Mean [Right Arm] 84 84 Blood Pressure Source [Right Arm] Automatic Cuff Blood Pressure Position [Right Arm] Sitting Sitting 02 Sat by Pulse Oximetry 96 96 Oxygen Delivery Method Room Air Room Air Orders (Tests/Meds): ORDERS Category Date Time Status XR KUB Stat Exams 09/21/20 19:38 Taken Urine Culture Stat Micro 09/21/20 19:57 Ordered [facility] [place] - General Stated complaint: Stomach pain Time Seen by Provider: 09/21/20 20:07 Mode of Arrival: Ambulatory Source of Information: Patient Limitations: No Limitations Description of Symptoms (Recalled from Triage Doc. by RN): Pt states he started Metformin 3 days ago and has been constipated ever since, he has lower abd pain that is worse with cough - History of Present Illness Provider Complaint: Patient has had abdominal pain for about a week. He started Metformin a week or so ago. He has had constipation. He has been taking Miralax and did have a bowel movement today. No blood in stool. No fever. No nausea or vomiting. No dysuria. No cramping. Pain a bit worse when he coughs. Onset (ago): week(s) (1) Location: abdomen Relieving factors: none Exacerbating factors: none Associated symptoms: denies other symptoms Treatments prior to arrival: other (miralax) - Related Data Home Medications Medication Instructions Recorded Confirmed Albuterol Sulfate [Ventolin HFA 2 puffs IH Q4HP PRN 10/14/19 03/08/20 Inhaler] Aspirin [Aspirin 81mg EC Tab] 81 mg PO DAILY 10/14/19 03/08/20 Fluticasone Propion/Salmeterol 1 inh IH BIDP PRN 10/14/19 03/08/20 [Fluticasone-Salmeterol 500-50] glipiZIDE [Glucotrol 5mg tablet] 5 mg PO BID 10/14/19 03/08/20 potassium chloride 8 mEq 8 meq PO DAILY 12/02/19 03/08/20 tablet,extended release omeprazole 40 mg capsule,delayed 40 mg PO DAILY cap 03/08/20 03/08/20 release Previous Rx's Medication Instructions Recorded clopidogrel 75 mg tablet 75 mg PO DAILY #90 tab 12/02/19 fenofibrate 160 mg tablet 160 mg PO DAILY #90 tab 12/02/19 furosemide 20 mg tablet 20 mg PO DAILYP PRN #30 tab 12/02/19 losartan 25 mg tablet 25 mg PO DAILY #90 tab 12/02/19 metoprolol tartrate 50 mg tablet 50 mg PO BID #180 tab 12/02/19 rosuvastatin 40 mg tablet 40 mg PO DAILY #90 tab 03/08/20 Sulfamethoxazole/Trimethoprim 1 each PO BID 10 Days #20 tab 09/21/20 [Bactrim DS tablet] Allergies Allergy/AdvReac Type Severity Reaction Status Date / Time Penicillins Allergy Unknown Verified 03/08/20 09:12 allergy reaction [facility] History - Hepatitis A Screen Attestation statement:: This patient has been screened for Hepatitis A risk factors. I have reviewed the patient's past medical history: Yes Medical History: Reports:: Coronary Artery Disease, Diabetes Mellitus Type 2, Hyperlipidemia, Hypertension, Myocardial Infarction Denies:: Cancer, Diabetes Shanthi
--- NOTE | 2020-09-21 19:38 | XR_ITS ---
PROCEDURE: XR KUB CLINICAL INDICATION: PAIN COMPARISON: No exams were available for comparison FINDINGS: Gas pattern-The bowel gas pattern is unremarkable. No obvious obstruction. Calcifications-No abnormal calcifications are evident. No obvious renal or ureteral calculi. Bones-mild osteoarthritic changes of the hips IMPRESSION: No acute findings. Dictated by: Lincoln Honeycutt MD 09/22/2020 07:28 Lincoln Honeycutt MD in OV 09/22/2020 07:28
[2020-09-21 20:17] VITALS: BP 137/58; PULSE 89; RESP 18; TEMP 36.5; O2SAT 96
[2020-09-21 20:33] LABS: Apearance,Urine Clear (Clear); Bilirubin,Urine Negative (Negative); Color,Urine Yellow (Yellow); Glucose,Urine (UA) Negative (Negative); Ketones,Urine Negative (Negative); PH,Urine 6.5 (5.0-8.5); Protein,Urine Negative (Negative); Specific Gravity, Urine 1.015 (1.005-1.030)
[2020-09-21 20:34] LABS: Blood, Urine Negative (Negative); UTC Leukocyte Esterase,Urine 2+ (Negative); UTC Nitrate,Urine Negative (Negative); Urobilinogen,Urine 1 EU/dl (0.2)
== END 2020-09-21 20:21 | disposition home or self-care (01) ==
PROVIDERS: Emergency Provider Physician Assistant; PCP Family Medicine
DX: N30.01 Acute cystitis with hematuria (principal); K59.00 Constipation, unspecified; E11.9 Type 2 diabetes mellitus without complications; I25.10 Atherosclerotic heart disease of native coronary artery without angina pectoris; I25.2 Old myocardial infarction; I10 Essential (primary) hypertension; E78.5 Hyperlipidemia, unspecified; Z87.891 Personal history of nicotine dependence; Z88.0 Allergy status to penicillin; Z79.899 Other long term (current) drug therapy
CPT/HCPCS: G0463; 74018; 81003; 87086; 99202

== ENCOUNTER 2021-12-10 18:37 | Emergency (ER) | payer MEDICARE, MEDICAID, SELFPAY ==
[2021-12-10 19:50] VITALS: BP 106/70; PULSE 85; RESP 18; TEMP 36.7; O2SAT 97; BMI 33.5
--- NOTE | 2021-12-10 19:55 | HMH.EDUTC ---
[facility] Disposition Clinical Impression: Viral syndrome, COPD exacerbation Acute bronchitis Qualifiers: Bronchitis organism: unspecified organism Qualified Code(s): J20.9 - Acute bronchitis, unspecified Disposition: Home, Self-Care Condition on Discharge: Good Instructions: DI for Chronic Obstructive Pulmonary Disease, DI for Acute Bronchitis, DI for Viral Syndrome Additional Instructions: Drink plenty of fluids. Take tylenol or ibuprofen for pain or fever. Take the medications as directed. Follow up with your regular doctor. GO TO THE ER FOR ANY WORSENING SYMPTOMS Don't start the oral steroids until tomorrow, since you had the shot here today. The cough medication (promethazine dm) will make you drowsy, so don't drive or operate heavy machinery after taking it. Prescriptions: Promethazine/Dextromethorphan [Promethazine-Dm Syrup] 5 ml PO Q6HP PRN #240 ml PRN Reason: Cough Transmission Status: Pending to [facility] levoFLOXacin [Levaquin 500mg tab] 500 mg PO DAILY #7 tab Transmission Status: Pending to [facility] methylPREDNISolone [Medrol] 4 mg PO DIRECTED 6 Days #21 packet Transmission Status: Pending to [facility] Referrals: Zenobia Koroma APRN [Primary Care Provider] - Time of Disposition: 21:47 Medical Decision Making - Medical Records Medical records reviewed: No: I reviewed the patient's medical records. - Malcolm Inquiry Pt receiving controlled substance: No Vital Signs: 12/10/21 19:50 12/10/21 21:27 Temperature 98.0 F 98.0 F Temperature Source Oral Pulse Rate 85 Pulse Rate [Right] 85 Respiratory Rate 18 18 Blood Pressure 106/70 L Blood Pressure [Right Arm] 106/70 L Blood Pressure Mean [Right Arm] 82 02 Sat by Pulse Oximetry 97 Oxygen Delivery Method Room Air - Lab Data Lab results reviewed: Yes: I reviewed the patient's lab results. Lab Results 12/10/21 20:06: Influenza Type A Ag Negative, Influenza Type B Ag Negative 12/10/21 20:55: Group A Strep Rapid Negative Orders (Tests/Meds): ED MEDICATIONS Discontinued Medications Generic Name Dose Route Start Last Admin Trade Name Freq PRN Reason Stop Dose Admin Methylprednisolone Sodium Succinate 125 mg 12/10/21 21:22 12/10/21 21:26 Methylprednisolone Sod Succ 125mg Vial IM 12/10/21 21:23 125 mg ONCE ONE Administration ORDERS Category Date Time Status CXR 2 view (NOT portable) [XR chest 2V] Stat Exams 12/10/21 20:54 Taken Strep Screen Confirmation Stat Micro 12/10/21 20:55 Received [facility] HPI - General Stated complaint: body aches Time Seen by Provider: 12/10/21 19:55 - History of Present Illness Provider Complaint: He states that he has been having body aches, chills, low grade fever and a worsening cough for the past 2 days. - Related Data Home Medications Medication Instructions Recorded Confirmed Aspirin [Aspirin 81mg EC Tab] 81 mg PO DAILY 10/14/19 12/10/21 glipiZIDE [Glucotrol 5mg tablet] 10 mg PO BID 10/14/19 12/10/21 Fenofibrate 160 mg PO DAILY 12/10/21 12/10/21 Metoprolol Tartrate 50 mg PO BID 12/10/21 12/10/21 Rosuvastatin Calcium 40 mg PO DAILY 12/10/21 12/10/21 Previous Rx's Medication Instructions Recorded Promethazine/Dextromethorphan 5 ml PO Q6HP PRN #240 ml 12/10/21 [Promethazine-Dm Syrup] levoFLOXacin [Levaquin 500mg 500 mg PO DAILY #7 tab 12/10/21 tab] methylPREDNISolone [Medrol] 4 mg PO DIRECTED 6 Days #21 12/10/21 packet Allergies Allergy/AdvReac Type Severity Reaction Status Date / Time Penicillins Allergy Unknown Verified 03/08/20 09:12 allergy reaction [facility] History - Hepatitis A Screen Attestation statement:: This patient has been screened for Hepatitis A risk factors. I have reviewed the patient's past medical history: Yes Medical History: Reports:: Coronary Artery Disease, Diabetes Mellitus Type 2, Hyperlipidemia, Hypertension, Myocardial I
[2021-12-10 20:09] LABS: UTC Influenza A Antigen Negative (Negative); UTC Influenza B Antigen Negative (Negative)
--- NOTE | 2021-12-10 20:54 | XR_ITS ---
PROCEDURE INFORMATION: Exam: XR Chest Exam date and time: 12/10/2021 8:51 PM Age: 56 years old Clinical indication: Cough and other: Congestion; Prior surgery; Surgery date: 6+ months; Surgery type: Cabg, cardiac stents; Additional info: Congestion, cough TECHNIQUE: Imaging protocol: XR of the chest. Views: 2 views. COMPARISON: CR XR CHEST 2V 10/13/2019 9:29 AM FINDINGS: Lungs: No focal consolidation. Pleural spaces: No pleural effusion. No pneumothorax. Heart/Mediastinum: Cardiac valve prosthesis. Bones/joints: Median sternotomy. IMPRESSION: No focal consolidation.
[2021-12-10 21:07] LABS: Strep Scrn Group A (Rapid) Negative (Negative)
[2021-12-10 21:27] VITALS: BP 106/70; PULSE 85; RESP 18; TEMP 36.7; O2SAT 97
== END 2021-12-10 21:48 | disposition home or self-care (01) ==
PROVIDERS: Emergency Provider Nurse Practitioner Family; PCP Nurse Practitioner Family
DX: J20.9 Acute bronchitis, unspecified (principal); J44.1 Chronic obstructive pulmonary disease with (acute) exacerbation; B34.9 Viral infection, unspecified; I10 Essential (primary) hypertension; E78.5 Hyperlipidemia, unspecified; I25.10 Atherosclerotic heart disease of native coronary artery without angina pectoris; E11.9 Type 2 diabetes mellitus without complications; Z88.0 Allergy status to penicillin; Z87.891 Personal history of nicotine dependence
CPT/HCPCS: 71046; 87430; 87804; 96372; 99213; G0463

== ENCOUNTER 2022-04-20 11:20 | Emergency (ER) | payer MEDICARE, MEDICAID, SELFPAY ==
[2022-04-20 11:50] VITALS: BP 97/45; PULSE 78; RESP 20; TEMP 37.1; O2SAT 95; BMI 33.5
[2022-04-20 12:00] LABS: UTC Influenza A Antigen Negative (Negative); UTC Influenza B Antigen Negative (Negative)
--- NOTE | 2022-04-20 12:23 | HMH.EDUTC ---
[facility] Disposition Clinical Impression: URI (upper respiratory infection) Qualifiers: URI type: unspecified URI Qualified Code(s): J06.9 - Acute upper respiratory infection, unspecified Disposition: Home, Self-Care Condition on Discharge: Good Instructions: Sinusitis, DI for Sinusitis, DI for Cough -- Adult Additional Instructions: *Monitor Temp, Over the counter Motrin or Tylenol as directed/as needed Tylenol every 4 hours and Motrin every 6 hours (as long as your family doctor has told you that you can take it) for fever or pain. and straight to ER if unable to lower temp less than 101.0 after medication given *Warm salt water gargles may help to soothe the throat *Throat Lozenges *Warm fluids like tea with honey may help to soothe the throat *Sleep elevated *Humidifier/Vaporizer Take medication as prescribed Follow up IMMEDIATELY for new or worsening symptoms or no Noticeable improvement over the next 48-72 hours. 911 for difficulty breathing or swallowing You were tested for today for COVID19 your test result should be back in the next 24-48 hours, you may check your results on the [facility] My Health Portal Make sure to take your Vitamins Vit. C Vit D and Zinc if you can take them Prescriptions: methylPREDNISolone [Medrol 4mg tab] 4 mg PO DIRECTED #21 tab Transmission Status: Pending to [id number] Azithromycin [Z-Reese 250mg Tab] 250 mg PO DIRECTED #6 tab Transmission Status: Pending to [id number] Referrals: Provider,Referral, MD [Primary Care Provider] - As needed Forms: Work/School Release Time of Disposition: 12:36 Medical Decision Making - Malcolm Inquiry Pt receiving controlled substance: No Malcolm was queried for this patient: No Vital Signs: 04/20/22 11:50 04/20/22 12:34 Temperature 98.8 F 98.8 F Temperature Source Oral Pulse Rate 78 Pulse Rate [Left Brachial] 78 Respiratory Rate 20 20 Blood Pressure 97/45 L Blood Pressure [Left Arm] 97/45 L Blood Pressure Mean [Left Arm] 62 Blood Pressure Source [Left Arm] Automatic Cuff Blood Pressure Position [Left Arm] Sitting 02 Sat by Pulse Oximetry 95 Oxygen Delivery Method Room Air - Lab Data Lab results reviewed: Yes: I reviewed the patient's lab results. Lab Results 04/20/22 11:55: Influenza Type A Ag Negative, Influenza Type B Ag Negative Orders (Tests/Meds): ORDERS Category Date Time Status Covid-19 Nasal PCR ([facility]) Routine Lab 04/20/22 11:35 Received Medical Decision Narrative: Patient states that he has taken azithromycin and medrol in the past without complications or reactions [facility] HPI - General Stated complaint: Fever, cough, sore throat, aches Time Seen by Provider: 04/20/22 12:23 Mode of Arrival: Ambulatory Source of Information: Patient Limitations: No Limitations Description of Symptoms (Recalled from Triage Doc. by RN): PATIENT C/O FEVER, BODY ACHES, AND DRY COUGH THAT STARTED LAST NIGHT. HIS GRANDSON RECENTLY TESTED POSITIVE FOR COVID HEENT Symptoms (Recalled from RN notes): No Resp Symptoms (Recalled from RN notes): Yes Skin Symptoms (Recalled from RN notes): No MS Symptoms (Recalled from RN notes): No Functional Status (Recalled from RN notes): WNL - History of Present Illness Provider Complaint: Patient states that he hasnt felt well in a couple of days States that last night it got worse States that he has been having sinus congestion and pressure, cough, body aches, chills and headache States that grandson recently tested positive for COVID - Related Data Home Medications Medication Instructions Recorded Confirmed Aspirin [Aspirin 81mg EC Tab] 81 mg PO DAILY 10/14/19 12/10/21 glipiZIDE [Glucotrol 5mg tablet] 10 mg PO BID 10/14/19 12/10/21 Fenofibrate 160 mg PO DAILY 12/10/21 12/10/21 Metoprolol Tartrate 50 mg PO BID 12/10/21 12/10/21 Rosuvastatin Calcium 40 mg PO DAILY 12/10/21 12/10/21 Previous Rx's Medication Instructions Recorded Promethazine/De
[2022-04-20 12:34] VITALS: BP 97/45; PULSE 78; RESP 20; TEMP 37.1; O2SAT 95
== END 2022-04-20 12:48 | disposition home or self-care (01) ==
PROVIDERS: Emergency Provider Nurse Practitioner
DX: U07.1 COVID-19 (principal)
CPT/HCPCS: 87804; 99212; C9803; G0463; U0003; U0005

== ENCOUNTER → 2022-05-15 13:36 | Outpatient (CLI) | payer MEDICARE, MEDICAID, SELFPAY ==
--- NOTE | 2022-05-15 13:37 | CA_ITS ---
APPROVED REPORT EXAM: Comprehensive 2D, Doppler, and color-flow Echocardiogram [employer] Operator: Lidya Peña CRT Ht: 5 ft 4 in Wt: 192lbs BSA: 1.92 BP: 117/70 mmHg Indications: Abnormal ECG, Congestive Heart Failure, Shortness of Breath, Hyperlipidemia, Cardiomyopathy, ef 50% 10/31/19 2D Dimensions LVOT 2.14 cm (M/F) 1.5-2.5 LA Volume 40.90 mL LA Volume Index 21.30 mL/m2 (M/F) 16-34 M-Mode Dimensions RVDd 2.80 cm (0.9-2.6) LA Diam 4.08 cm (1.9-4.0) LVDd 5.15 cm (3.5-5.7) Ao Diam 4.24 cm (2.0-3.7) LVDs 3.58 cm (3.5-5.7) IVSd 1.96 cm (0.6-1.1) PWd 0.84 cm (0.6-1.1) EF (Teich) 57.60% FS 30.50% EDV (Teich) 126.60 mL TAPSE 1.58 (<1.7) ESV (Teich) 53.70 mL LV Diastology E Decel Time 83.00 (160-240 msec) E/A Ratio 0.58 MED E' 7.30 (< 7 cm/sec) MED A' 10.70 cm/s E'/MED E' Ratio 6.92 (>14) LAT E' 11.30 (<10 cm/sec) LAT A' 8.30 cm/s E/LAT E' Ratio 4.47 (>14) Aortic Valve AO Peak GR. 4.30 mmHg Mitral Valve MV A Velocity 88.00 (40-130 cm/s) E/A Ratio 0.58 MV Decel. Time 83.00 (160-240 ms) Pulmonary Valve PV Peak Velocity 196.00 (50-150 cm/s) Tricuspid Valve TR P. Velocity 116.00 cm/s RAP Estimate 10.00 mmHg RVSP 15.40 mmHg Left Ventricle Left atrium is mildly enlarged, left ventricle is normal size mild concentric left ventricular hypertrophy, estimated ejection fraction 55% with no regional wall motion abnormality, grade 1 diastolic dysfunction seen without tissue Doppler evidence of raise left atrial pressure. Right Ventricle Right atrium and right ventricle are mildly enlarged with normal contractility. Aortic Valve Aortic valve is minimally thickened and fibrosed there is no aortic stenosis aortic insufficiency. Mitral Valve Mitral valve is grossly normal, there is trace mitral regurgitation. Tricuspid Valve Tricuspid grossly normal, there is trace tricuspid regurgitation. Tricuspid regurgitation request is inadequate for calculation of the right ventricular systolic pressure. Pulmonic Valve Pulmonic valve is poorly visualized. Great Vessels Aortic root is normal size. Inferior vena cava is poorly visualized. Pericardium No significant pericardial effusion noted. Conclusion 1. Mild biatrial enlargement, normal left ventricular size, mild concentric left ventricular hypertrophy, estimated ejection fraction 55% with no regional wall motion abnormality, grade 1 diastolic dysfunction seen without tissue Doppler evidence of raise left atrial pressure. 2. Trace mitral and tricuspid regurgitation. 3. No significant pericardial effusion noted. 4. Inferior vena cava is poorly visualized. Electronically signed by : Bashir Islas MD 05/16/2022 08:57:43
== END ==
PROVIDERS: PCP Emergency Medicine; Visit Provider Nurse Practitioner Family
DX: E78.2 Mixed hyperlipidemia (principal); I11.9 Hypertensive heart disease without heart failure; I25.10 Atherosclerotic heart disease of native coronary artery without angina pectoris; I26.99 Other pulmonary embolism without acute cor pulmonale; I42.9 Cardiomyopathy, unspecified; I50.9 Heart failure, unspecified; N18.2 Chronic kidney disease, stage 2 (mild); R94.31 Abnormal electrocardiogram [ECG] [EKG]; Z95.1 Presence of aortocoronary bypass graft; Z95.5 Presence of coronary angioplasty implant and graft
CPT/HCPCS: 93306

== ENCOUNTER 2022-08-20 19:22 | Emergency (ER) | payer MEDICARE, MEDICAID, SELFPAY ==
--- NOTE | 2022-08-20 19:47 | EXP.UTC ---
Discharge Plan Disposition Patient Disposition: Home, Self-Care Condition: Good Prescriptions Prescriptions: New benzonatate [benzonatate] 100 mg capsule 100 mg PO TIDP PRN (Reason: Cough) Qty: 30 0RF cefdinir 300 mg capsule 300 mg PO BID Qty: 20 0RF methylprednisolone 4 mg Tablets,Dose Pack 4 mg PO DIRECTED Qty: 21 0RF No Action fluticasone propion-salmeterol [Advair Diskus] 250-50 mcg/dose blister with device 1 inh inhalation ONCE albuterol sulfate [ProAir HFA] 90 mcg/actuation HFA aerosol inhaler 2 puff inhalation ONCE PRN aspirin 81 mg tablet,delayed release (DR/EC) 81 mg PO DAILY Qty: 90 3RF clopidogrel 75 mg tablet 75 mg PO DAILY Qty: 90 3RF metoprolol tartrate 50 mg tablet 50 mg PO BID Qty: 90 3RF rosuvastatin 40 mg tablet 40 mg PO DAILY Qty: 90 3RF fenofibrate 160 MG tablet 160 mg PO DAILY Rx Instructions: TAKE 1 TABLET BY MOUTH ONCE DAILY glipizide 5 MG tablet 10 mg PO BID Referrals Follow up/Referrals: Reynaldo Real MD [Primary Care Provider] - See instructions Activity Restrictions/Add. Instructions Additional Instructions/Restrictions: Drink plenty of fluids. Take tylenol or ibuprofen for pain or fever. Take the medications as directed. Follow up with your regular doctor. GO TO THE ER FOR ANY WORSENING SYMPTOMS Don't start the oral steroids until tomorrow, since you had the shot here today. Clinical Impressions Clinical Impression: COPD exacerbation Instructions Patient Instructions: DI for Chronic Obstructive Pulmonary Disease Discharge ED Provider: Shady Ortiz [facility] General Stated complaint: henry, cough Time Seen by Provider: 08/20/22 19:47 History of Present Illness Provider Complaint: He states that for the past 3 days he has had a worsening cough and chest congestion. He has a history of copd. He denies any fever/chills/body aches. Related Data Home Medications Medication Instructions Recorded Confirmed glipizide 5 mg tablet 10 mg PO BID Diabetes 10/14/19 05/08/22 fenofibrate 160 mg tablet 160 mg PO DAILY Cholesterol 12/10/21 05/08/22 albuterol sulfate 90 mcg/actuation 2 puff inhalation ONCE PRN 05/08/22 05/08/22 aerosol inhaler (ProAir HFA) fluticasone 250 mcg-salmeterol 50 1 inh inhalation ONCE 05/08/22 05/08/22 mcg/dose blistr powdr for inhalation (Advair Diskus) Previous Rx's Medication Instructions Recorded aspirin 81 mg tablet,delayed 81 mg PO DAILY Heart disease #90 06/04/22 release tabs clopidogrel 75 mg tablet 75 mg PO DAILY #90 tabs 06/04/22 metoprolol tartrate 50 mg tablet 50 mg PO BID Hypertension #90 tabs 06/04/22 rosuvastatin 40 mg tablet 40 mg PO DAILY Cholesterol #90 tabs 06/04/22 benzonatate 100 mg capsule 100 mg PO TIDP PRN Cough #30 caps 08/20/22 cefdinir 300 mg capsule 300 mg PO BID #20 caps 08/20/22 methylprednisolone 4 mg tablets in 4 mg PO DIRECTED #21 tabs 08/20/22 a dose pack Allergies Allergy/AdvReac Type Severity Reaction Status Date / Time Penicillins Allergy Unknown Verified 08/20/22 19:57 allergy reaction [facility] Disclaimer: The information contained in this section may have been updated after the patient was seen, as this information can be updated by other users. Medical History Diastolic dysfunction Social History Smoking Status: Former smoker second hand exposure: No alcohol intake: never current occupational status: other Travel in the last 8 weeks: None household members: spouse housing: house current occupational exposures/hazards: No caffeine: Yes ROS Obtained: Yes All systems reviewed & no additional complaints except as documented Constitutional Constitutional: Denies chills and Denies fever(s) Eyes Eyes: Denies eye discharge ENT Ears, Nose, Mouth, and Throat: R
[2022-08-20 19:56] VITALS: BP 129/67; PULSE 74; RESP 16; TEMP 37.2; O2SAT 96; BMI 33.3
[2022-08-20 20:26] VITALS: BP 129/67; PULSE 74; RESP 16; TEMP 37.2
== END 2022-08-20 20:30 | disposition home or self-care (01) ==
PROVIDERS: Emergency Provider Nurse Practitioner Family; PCP Emergency Medicine
DX: J44.1 Chronic obstructive pulmonary disease with (acute) exacerbation (principal)
CPT/HCPCS: 99212; C9803; G0463; U0003; U0005

== ENCOUNTER 2023-05-22 16:42 | Emergency (ER) | payer MEDICARE, MEDICAID, SELFPAY ==
[2023-05-22] VITALS (9 sets, daily range): BP systolic 104–150; BP diastolic 67–90; PULSE 66–75; RESP 16–18; TEMP 36.4–36.7; O2SAT 94–98; BMI 32.4
--- NOTE | 2023-05-22 16:54 | ECG_ITS ---
APPROVED REPORT Exam: Resting ECG HR:72 bpm ECG Measurements Heart Rate 72 AXES [place] 293 P 62 QRSd 123 QRS 56 QT 393 T 18 QTc 416 Conclusion SINUS RHYTHM WITH FIRST DEGREE AV BLOCK PROBABLE INFERIOR MYOCARDIAL INFARCTION , PROBABLY OLD [35 ms Q WAVE IN II/aVF] ABNORMAL ECG UNCONFIRMED REPORT Electronically signed by : Alen Dugan MD 05/24/2023 07:37:01
--- NOTE | 2023-05-22 16:56 | XR_ITS ---
PROCEDURE INFORMATION: Exam: XR Chest Exam date and time: 05/22/2023 5:31 PM Age: 58 years old Clinical indication: Other: Heartburn; Additional info: Cardiac work TECHNIQUE: Imaging protocol: Radiologic exam of the chest. Views: 1 view. COMPARISON: CR XR CHEST 2V 12/10/2021 8:51 PM FINDINGS: Lungs: Unremarkable. No consolidation. Pleural spaces: Unremarkable. No pleural effusion. No pneumothorax. Heart/Mediastinum: There are coronary artery stents. Bones/joints: The patient is status post median sternotomy. IMPRESSION: No dense parenchymal consolidation, pleural effusion, or pneumothorax.
[2023-05-22 17:35] LABS: Basophils # 0.1 K/mm3 (0-0.2); Basophils % 0.8 % (0.1-2.0); Eosinophils # 0.6 K/mm3 (0.0-0.4); Eosinophils % 5.1 % (0.1-12.0); Hematocrit 56.9 % (42.0-52.0); Lymphocytes # 3.1 K/mm3 (0.7-4.5); Lymphocytes % 25.2 % (10-50); Mean Corpuscular HGB Conc 32.2 g/dL (31.8-35.4); Mean Corpuscular Volume 93.2 fl (80-94); Mean Platelet Volume 10.2 fl (7.4-10.4); Monocytes # 0.8 K/mm3 (0.1-1.0); Monocytes % 6.3 % (1.7-9.3); Neutrophils # 7.7 K/mm3 (1.8-7.8); Neutrophils % 62.6 % (37.0-80.0); Platelet Count 250 K/mm3 (142-424); Red Cell Distribution Width 13.7 % (11.5-17.5); White Blood Count 12.2 K/mm3 (4.8-10.8)
[2023-05-22 17:37] LABS: Chloride 105 mmol/L (98-107); Potassium 4.5 mmoL/L (3.5-5.1); Sodium 139 mmol/L (136-145)
[2023-05-22 17:39] LABS: Alanine Aminotransferase 26 U/L (12-78); Alkaline Phosphatase 79 U/L (38-126); Aspartate Amino Transferase 30 U/L (17-59); Bilirubin,Total 0.7 mg/dl (0.2-1.3); Blood Urea Nitrogen 14 mg/dl (9-20); Creatinine Clearance Estimated 98 mL/min (50-200); Estimated Glomerular Filt Rate 77 ml/min (>60); GFR (African American) 93 ML/MIN (>60)
[2023-05-22 17:40] LABS: Albumin Level 4.2 g/dl (3.5-5.0); Albumin/Globulin Ratio 1.4 (1.1-1.8); Anion Gap 14.5 mEq/L (5-15); Calcium 9.6 mg/dl (8.4-10.2); Carbon Dioxide 24 mmol/L (22.0-30.0); Glucose 195 mg/dl (74-100); Total Protein,Serum 7.2 g/dl (6.3-8.2)
[2023-05-22 17:52] LABS: Troponin I < 0.01 ng/ml (0.00-0.034)
[2023-05-22 17:54] LABS: Hemoglobin 18.3 g/dL (14.1-18.0)
--- NOTE | 2023-05-22 17:59 | PC.NURSE ---
Rounded on pt. No needs voiced at this time. Call light within reach.
--- NOTE | 2023-05-22 18:00 | PC.NURSE ---
Rounded on patient; nothing needed at this time. Call light within reach of patient
--- NOTE | 2023-05-22 19:05 | HMH.EDGENADL ---
Discharge Plan Disposition Patient Disposition: Home, Self-Care Chief Complaint: PAIN Prescriptions Prescriptions: No Action fluticasone propion-salmeterol [Advair Diskus] 250-50 mcg/dose blister with device 1 inh inhalation ONCE albuterol sulfate [ProAir HFA] 90 mcg/actuation HFA aerosol inhaler 2 puff inhalation ONCE PRN esomeprazole magnesium 40 mg capsule,delayed release(DR/EC) 40 mg PO DAILY furosemide [Lasix] 20 mg tablet 20 mg PO DAILY PRN (Reason: edema) Qty: 30 0RF aspirin 81 mg tablet,delayed release (DR/EC) 81 mg PO DAILY Qty: 90 3RF clopidogrel 75 mg tablet 75 mg PO DAILY Qty: 90 3RF metoprolol tartrate 50 mg tablet 50 mg PO BID Qty: 90 3RF rosuvastatin 40 mg tablet 40 mg PO DAILY Qty: 90 3RF fenofibrate 160 MG tablet 160 mg PO DAILY Rx Instructions: TAKE 1 TABLET BY MOUTH ONCE DAILY glipizide 5 MG tablet 10 mg PO BID Referrals Follow up/Referrals: Reynaldo Real MD [Primary Care Provider] - See instructions Activity Restrictions/Add. Instructions Additional Instructions/Restrictions: At this time is felt you are safe to be discharged home. If new or worsening symptoms please do not hesitate to return the emergency department. Please call and schedule follow-up with Dr. Beal early next week as soon as you are able. Clinical Impressions Clinical Impression: Chest pain, Wheezing, H/O gastroesophageal reflux (GERD) Discharge ED Provider: Dash Garcia General Adult HPI General Chief complaint: PAIN Stated complaint: poss heartburn Time Seen by Provider: 05/22/23 18:15 Mode of Arrival: Ambulatory Source of Information: Patient Limitations: No Limitations Description of Symptoms (Recalled from ER Triage Doc. by RN): Presents to ED with c/o heart burn that started at 0130 this morning. Patient reports taking omeprazole daily but denies taking any other meds [employer]. Cardiac hx but denies any cardiac symptoms. History of Present Illness HPI narrative: Patient is a 58-year-old male past medical history of ACS status post stenting, open heart surgery, GERD who presents emergency department for evaluation of cough and chest pain. Patient was treated with steroids and antibiotics for a cough over the last week for which she has been compliant. At 1:30 AM this morning patient developed substernal burning which has waxed and waned in intensity however due to its persistent nature he presents here for continued evaluation. It does not radiate. His cough is not worse than it has been over the last week. No other acute complaints at this time. Related Data Home Medications Medication Instructions Recorded Confirmed glipizide 5 mg tablet 10 mg PO BID Diabetes 10/14/19 12/18/22 fenofibrate 160 mg tablet 160 mg PO DAILY Cholesterol 12/10/21 12/18/22 albuterol sulfate 90 mcg/actuation 2 puff inhalation ONCE PRN 05/08/22 12/18/22 aerosol inhaler (ProAir HFA) fluticasone 250 mcg-salmeterol 50 1 inh inhalation ONCE 05/08/22 12/18/22 mcg/dose blistr powdr for inhalation (Advair Diskus) esomeprazole magnesium 40 mg 40 mg PO DAILY 12/18/22 12/18/22 capsule,delayed release Previous Rx's Medication Instructions Recorded aspirin 81 mg tablet,delayed 81 mg PO DAILY Heart disease #90 06/04/22 release tabs clopidogrel 75 mg tablet 75 mg PO DAILY #90 tabs 06/04/22 metoprolol tartrate 50 mg tablet 50 mg PO BID Hypertension #90 tabs 06/04/22 rosuvastatin 40 mg tablet 40 mg PO DAILY Cholesterol #90 tabs 06/04/22 furosemide 20 mg tablet (Lasix) 20 mg PO DAILY PRN edema #30 tabs 12/18/22 Allergies Allergy/AdvReac Type Severity Reaction Status Date / Time Penicillins Allergy Unknown Verified 12/18/22 10:04 allergy reaction [facility] Disclaimer: The information contained in this section may have been updated after the patient was seen, as this information can be updated by other users. Medical History (Reviewed 12/18
--- NOTE | 2023-05-22 19:10 | PC.NURSE ---
called respiratory to notify the need for duoneb tx
[2023-05-22 19:23] LABS: Coronavirus 19, PCR Not Detected (NotDetected); Influenza A, PCR Not Detected (NotDetected); Influenza B, PCR Not Detected (NotDetected)
[2023-05-22 20:06] LABS: Troponin I < 0.01 ng/ml (0.00-0.034)
--- NOTE | 2023-05-22 20:55 | ECG_ITS ---
APPROVED REPORT Exam: Resting ECG HR:69 bpm ECG Measurements Heart Rate [address] 249 P 65 QRSd 120 QRS 46 QT 394 T 6 QTc 413 Conclusion SINUS RHYTHM WITH FIRST DEGREE AV BLOCK INFERIOR MYOCARDIAL INFARCTION , PROBABLY OLD [40+ ms Q WAVE AND/OR ST/T ABNORMALITY IN II/aVF] ABNORMAL ECG UNCONFIRMED REPORT Electronically signed by : Alen Dugan MD 05/24/2023 07:35:43
== END 2023-05-22 21:03 | disposition home or self-care (01) ==
PROVIDERS: Emergency Provider Emergency Medicine; PCP Emergency Medicine
DX: R07.9 Chest pain, unspecified (principal); R06.2 Wheezing; K21.9 Gastro-esophageal reflux disease without esophagitis; F17.210 Nicotine dependence, cigarettes, uncomplicated
CPT/HCPCS: 71045; 80053; 84484; 85025; 87636; 93005; 99285

== ENCOUNTER 2024-05-28 11:30 | Emergency (ER) | payer MEDICARE, MEDICAID, SELFPAY ==
[2024-05-28 12:15] VITALS: BP 117/70; PULSE 82; RESP 18; TEMP 36.6; O2SAT 98; BMI 30.8
[2024-05-28] MEDS: DEXAMETHASONE 4MG/ML 1ML VIAL 4 MG IM (12:48)
--- NOTE | 2024-05-28 13:04 | EXP.UTC ---
Discharge Plan Disposition Patient Disposition: Home, Self-Care Condition: Good Prescriptions Prescriptions: New azithromycin 250 mg tablet See Rx Instructions .ROUTE .COMPLEX Qty: 6 0RF Rx Instructions: For 250 mg dose pack: take 500 mg today (day 1), then 250 mg for 4 days (days 2-5) benzonatate 100 mg capsule 100 mg PO TID PRN (Reason: cough) Qty: 30 0RF loratadine 10 mg tablet 10 mg PO DAILY Qty: 30 2RF No Action fluticasone propion-salmeterol [Advair Diskus] 250-50 mcg/dose blister with device 1 inh inhalation ONCE albuterol sulfate [ProAir HFA] 90 mcg/actuation HFA aerosol inhaler 2 puff inhalation ONCE PRN esomeprazole magnesium 40 mg capsule,delayed release(DR/EC) 40 mg PO DAILY furosemide [Lasix] 20 mg tablet 20 mg PO DAILY PRN (Reason: edema) Qty: 30 0RF aspirin 81 mg tablet,delayed release (DR/EC) 81 mg PO DAILY Qty: 90 3RF clopidogrel 75 mg tablet 75 mg PO DAILY Qty: 90 3RF metoprolol tartrate 50 mg tablet 50 mg PO BID Qty: 90 3RF rosuvastatin 40 mg tablet 40 mg PO DAILY Qty: 90 3RF fenofibrate 160 MG tablet 160 mg PO DAILY Rx Instructions: TAKE 1 TABLET BY MOUTH ONCE DAILY glipizide 5 MG tablet 10 mg PO BID Referrals Follow up/Referrals: Kate Torres [Primary Care Provider] - See instructions Activity Restrictions/Add. Instructions Additional Instructions/Restrictions: Take medication as prescribed. Increase fluids and rest. Follow up with primary care provider next week. Clinical Impressions Clinical Impression: Acute bronchitis Qualifiers: Bronchitis organism: unspecified organism Qualified Code(s): J20.9 - Acute bronchitis, unspecified URI (upper respiratory infection) Qualifiers: URI type: unspecified URI Qualified Code(s): J06.9 - Acute upper respiratory infection, unspecified Instructions Patient Instructions: DI for Viral Upper Respiratory Infection -- Adult, DI for Chronic Obstructive Pulmonary Disease Print Language Print Language: Ukrainian Discharge ED Provider: Lyssa Waters [facility] General Stated complaint: congestion Mode of Arrival: Ambulatory Source of Information: Patient Limitations: No Limitations Time Seen by Provider: 05/28/24 12:30 Description of Symptoms (Recalled from Triage Doc. by RN): Patient reports chest congestion, cough, and wheezing. HEENT Symptoms (Recalled from RN notes): Yes Resp Symptoms (Recalled from RN notes): No Skin Symptoms (Recalled from RN notes): No MS Symptoms (Recalled from RN notes): No Functional Status (Recalled from RN notes): wnl History of Present Illness Provider Complaint: Pt reports for the past 3 days he has had clear runny nose and coughing up green thick sputum. He states that he has been wheezing as well. He reports a history of COPD. Related Data Home Medications ?Medication ?Instructions ?Recorded ?Confirmed glipizide 5 mg tablet 10 mg PO BID Diabetes 10/14/19 12/18/22 fenofibrate 160 mg tablet 160 mg PO DAILY Cholesterol 12/10/21 12/18/22 albuterol sulfate 90 mcg/actuation 2 puff inhalation ONCE PRN 05/08/22 12/18/22 aerosol inhaler (ProAir HFA) fluticasone 250 mcg-salmeterol 50 1 inh inhalation ONCE 05/08/22 12/18/22 mcg/dose blistr powdr for inhalation (Advair Diskus) esomeprazole magnesium 40 mg 40 mg PO DAILY 12/18/22 12/18/22 capsule,delayed release Previous Rx's ?Medication ?Instructions ?Recorded aspirin 81 mg tablet,delayed 81 mg PO DAILY Heart disease #90 06/04/22 release tabs clopidogrel 75 mg tablet 75 mg PO DAILY #90 tabs 06/04/22 metoprolol tartrate 50 mg tablet 50 mg PO BID Hypertension #90 tabs 06/04/22 rosuvastatin 40 mg tablet 40 mg PO DAILY Cholesterol #90 tabs 06/04/22 furosemide 20 mg tablet (Lasix) 20 mg PO DAILY PRN edema #30 tabs 12/18/22 azithromycin 250 mg tablet See Rx Instructions PO .COMPLEX #6 05/28/24 tabs benzonatate 100 mg capsule 100 mg PO TID PRN cough #30 caps 05/28/24 loratadine 10 mg tablet 10 mg PO DAILY #30 tabs 05/28/24 Allergies Allergy/AdvReac Type Severity Reaction Status Date / Time Penicillins Allergy Unknown Verified 12/18/22 10:04 allergy reaction Worker's Comp Is this a Worker's Comp case?: No [facility] Disclaimer: The information contained in this section may have been updated after the patient was seen, as this information can be updated by other users. Medical History Diastolic dysfunction Social History Smoking Status: Current every day smoker tobacco type: cigarettes second hand exposure: No alcohol intake: never current occupational status: other Travel in the last 8 weeks: None household members: spouse housing: house current occupational exposures/hazards: No caffeine: Yes ROS Obtained: Yes All systems reviewed & no additional complaints except as documented Constitutional Constitutional: Reports system reviewed and no additional complaints, except as documented and Reports malaise Eyes Eyes: Reports system reviewed and no additional complaints, except as documented ENT Ears, Nose, Mouth, and Throat: Reports system reviewed and no additional complaints, except as documented, Reports nasal congestion and Reports nasal discharge Cardiovascular Cardiovascular: Reports system reviewed and no additional complaints, except as documented Respiratory Respiratory: Reports system reviewed and no additional complaints, except as documented, Reports change in phlegm color and Reports wheezing Gastrointestinal Gastrointestingal: Reports system reviewed and no additional complaints, except as documented Genitourinary Male Genitourinary: Reports system reviewed and no additional complaints, except as documented Musculoskeletal Musculoskeletal: Reports system reviewed and no additional complaints, except as documented Integumentary/Breasts Skin/Breast: Reports system reviewed and no additional complaints, except as documented Neurologic Neurologic: Reports system reviewed and no additional complaints, except as documented Endocrine Endocrine: Reports system reviewed and no additional complaints, except as documented Hematologic/Lymphatic Henatologic/Lymphatic: Reports system reviewed and no additional complaints, except as documented Allergic/Immunologic Allergic/Immunologic: Reports wheezing Physical Exam General General appearance: alert and in no apparent distress Head Head exam: atraumatic and normocephalic Eye Eye exam: Present normal appearance ENT ENT exam: Present mucous membranes moist Expanded ENT Exam External ear exam: Present normal external inspection Nasal speculum exam: Bilateral: other (clear drainage) Mouth exam: Present normal external inspection Teeth exam: Present normal inspection Throat exam: Present normal inspection Neck Neck exam: Present normal inspection; Absent lymphadenopathy Chest Chest inspection: Present normal inspection and symmetric chest wall rise Respiratory Respiratory exam: Present wheezes Expanded Respiratory Exam Location: Left: wheezes and rhonchi, Right: wheezes and rhonchi, Upper: wheezes and rhonchi and Lower: wheezes and rhonchi Cardiovascular Cardiovascular exam: Present regular rate and normal rhythm Abdominal Exam Abdominal exam: Present soft and normal bowel sounds Extremities Exam Extremities exam: Present normal inspection Back Exam Back exam: Present normal inspection Neurological Exam Neurological exam: Present alert and oriented X3 Psychiatric Psychiatric exam: Present normal affect and normal mood Skin Skin exam: Present warm, dry and intact Lymphatic Lymphatic Findings: no adenopathy Medical Decision Making Medical Records Screening: Per USPSTF and CDC recommendations, given the prevalence of disease in our region, it is our hospital?s policy to screen for HIV and viral Hepatitis for all patients aged 18 and over and those with ongoing risk factors. Malcolm Inquiry Pt receiving controlled substance: No Malcolm was queried for this patient: No Vital Signs: 05/28/24 12:15 Temperature 97.8 F Temperature Source Oral Pulse Rate [Radial] 82 Respiratory Rate 18 Blood Pressure [Right Arm] 117/70 Blood Pressure Mean [Right Arm] 85 Blood Pressure Source [Right Arm] Automatic Cuff Blood Pressure Position [Right Arm] Sitting 02 Sat by Pulse Oximetry 98 Oxygen Delivery Method Room Air Orders (Tests/Meds): ED MEDICATIONS Generic Name Dose Route Start Last Admin Trade Name Freq PRN Reason Stop Dose Admin Dexamethasone Sodium Phosphate 4 mg 05/28/24 12:44 05/28/24 12:48 Dexamethasone 4mg/Ml 1ml Vial IM 05/28/24 12:45 4 mg ONCE ONE Administration
[2024-05-28 13:23] VITALS: BP 117/70; PULSE 82; RESP 18; TEMP 36.6; O2SAT 98
== END 2024-05-28 13:24 | disposition home or self-care (01) ==
PROVIDERS: Emergency Provider Nurse Practitioner Family; PCP Nurse Practitioner Family
DX: J20.9 Acute bronchitis, unspecified (principal); R06.2 Wheezing; R09.89 Other specified symptoms and signs involving the circulatory and respiratory systems; J44.9 Chronic obstructive pulmonary disease, unspecified
CPT/HCPCS: 96372; 99212; 99214; G0463; J1100

== ENCOUNTER 2024-09-02 03:00 | Emergency (ER) | payer MEDICARE, MEDICAID, SELFPAY ==
--- NOTE | 2024-09-02 02:58 | ECG_ITS ---
APPROVED REPORT Exam: Resting ECG HR:73 bpm ECG Measurements Heart Rate 73 AXES CA 298 P 72 QRSd 136 QRS 62 QT 379 T 42 QTc 405 Conclusion SINUS RHYTHM WITH FIRST DEGREE AV BLOCK INTRAVENTRICULAR CONDUCTION DELAY [130+ ms QRS DURATION] POSSIBLE INFERIOR MYOCARDIAL INFARCTION , OF INDETERMINATE AGE [30 ms Q WAVE IN II/aVF] ABNORMAL ECG UNCONFIRMED REPORT Electronically signed by : MARGOTH ELLISON, 09/02/2024 06:50:30
[2024-09-02 03:01] VITALS: BP 167/90; PULSE 75; RESP 18; TEMP 36.8; O2SAT 99; BMI 32.5
--- NOTE | 2024-09-02 03:04 | XR_ITS ---
PROCEDURE INFORMATION: Exam: XR Chest Exam date and time: 09/02/2024 3:12 AM Age: 59 years old Clinical indication: Pain; Chest pressure; Additional info: Cp TECHNIQUE: Imaging protocol: Radiologic exam of the chest. Views: 1 view. COMPARISON: CR XR CHEST PORTABLE 05/22/2023 5:31 PM FINDINGS: Lungs: Basilar infiltrates, likely customer account representative of atelectasis or scarring. Pleural spaces: Unremarkable. No pleural effusion. No pneumothorax. Heart/Mediastinum: Postprocedural changes of the mediastinum. Bones/joints: Sternotomy changes. IMPRESSION: No acute cardiopulmonary findings.
--- NOTE | 2024-09-02 03:06 | ED_ITS ---
Discharge Plan Disposition Patient Disposition: Home, Self-Care Prescriptions Prescriptions: No Action fluticasone propion-salmeterol [Advair Diskus] 250-50 mcg/dose blister with device 1 inh inhalation ONCE albuterol sulfate [ProAir HFA] 90 mcg/actuation HFA aerosol inhaler 2 puff inhalation ONCE PRN esomeprazole magnesium 40 mg capsule,delayed release(DR/EC) 40 mg PO DAILY furosemide [Lasix] 20 mg tablet 20 mg PO DAILY PRN (Reason: edema) Qty: 30 0RF aspirin 81 mg tablet,delayed release (DR/EC) 81 mg PO DAILY Qty: 90 3RF clopidogrel 75 mg tablet 75 mg PO DAILY Qty: 90 3RF metoprolol tartrate 50 mg tablet 50 mg PO BID Qty: 90 3RF rosuvastatin 40 mg tablet 40 mg PO DAILY Qty: 90 3RF fenofibrate 160 MG tablet 160 mg PO DAILY Rx Instructions: TAKE 1 TABLET BY MOUTH ONCE DAILY azithromycin 250 mg tablet See Rx Instructions .ROUTE .COMPLEX Qty: 6 0RF Rx Instructions: For 250 mg dose pack: take 500 mg today (day 1), then 250 mg for 4 days (days 2-5) benzonatate 100 mg capsule 100 mg PO TID PRN (Reason: cough) Qty: 30 0RF loratadine 10 mg tablet 10 mg PO DAILY Qty: 30 2RF glipizide 5 MG tablet 10 mg PO BID Referrals Follow up/Referrals: Kristina Taylor APRN [Primary Care Provider] - See instructions Activity Restrictions/Add. Instructions Additional Instructions/Restrictions: Please follow-up with your primary care provider. Please return to the emergency department if you develop any new or worsening symptoms or become concerned for your health. Clinical Impressions Clinical Impression: Chest pain Print Language Print Language: Solomon Islander Discharge ED Provider: Duane Parks General Adult HPI General Chief complaint: Chest Pain Stated complaint: chest pain Time Seen by Provider: 09/02/24 03:01 History of Present Illness HPI narrative: 59-year-old male with history of coronary artery disease status post CABGs and stents presents for chest tightness and mild nausea. He reports that the last time this happened he was having a heart attack, this was several years ago. He reports that he has had a chest cold recently and has had a cough for the last few days. Denies any fever. Denies any significant shortness of breath. Reports he takes aspirin and Plavix. Did not take anything prior to arrival. Related Data Home Medications ?Medication ?Instructions ?Recorded ?Confirmed glipizide 5 mg tablet 10 mg PO BID Diabetes 10/14/19 12/18/22 fenofibrate 160 mg tablet 160 mg PO DAILY Cholesterol 12/10/21 12/18/22 albuterol sulfate 90 mcg/actuation 2 puff inhalation ONCE PRN 05/08/22 12/18/22 aerosol inhaler (ProAir HFA) fluticasone 250 mcg-salmeterol 50 1 inh inhalation ONCE 05/08/22 12/18/22 mcg/dose blistr powdr for inhalation (Advair Diskus) esomeprazole magnesium 40 mg 40 mg PO DAILY 12/18/22 12/18/22 capsule,delayed release Previous Rx's ?Medication ?Instructions ?Recorded aspirin 81 mg tablet,delayed 81 mg PO DAILY Heart disease #90 06/04/22 release tabs clopidogrel 75 mg tablet 75 mg PO DAILY #90 tabs 06/04/22 metoprolol tartrate 50 mg tablet 50 mg PO BID Hypertension #90 tabs 06/04/22 rosuvastatin 40 mg tablet 40 mg PO DAILY Cholesterol #90 tabs 06/04/22 furosemide 20 mg tablet (Lasix) 20 mg PO DAILY PRN edema #30 tabs 12/18/22 azithromycin 250 mg tablet See Rx Instructions PO .COMPLEX #6 05/28/24 tabs benzonatate 100 mg capsule 100 mg PO TID PRN cough #30 caps 05/28/24 loratadine 10 mg tablet 10 mg PO DAILY #30 tabs 05/28/24 Allergies Allergy/AdvReac Type Severity Reaction Status Date / Time Penicillins Allergy Unknown Verified 12/18/22 10:04 allergy reaction [facility] Disclaimer: The information contained in this section may have been updated after the patient was seen, as this information can be updated by other users. Medical History Diastolic dysfunction Social History Smoking Status: Never smoker second hand exposure: No alcohol intake: never current occupational status: other Travel in the last 8 weeks: None household members: spouse housing: house current occupational exposures/hazards: No caffeine: Yes Have you lived/traveled outside [place] in past 30 days?: No Contact w/someone who lives/traveled outside [place] past 30 days?: No Exposure to someone with infectious disease in past 14 days?: No Do you have a fever (greater than 100.4 F or 38 C)?: No Have you tested positive for COVID-19: No Exposed to someone with COVID-19 in past 14 days?: No Do you have a sore throat?: No Do you have a cough?: No Do you have any weakness?: No Do you have any diarrhea?: No Are you experiencing any unusual bleeding?: No Do you have any muscle aches/pain?: No Do you have any abdominal pain?: No Are you experiencing loss of taste or smell?: No Other Medical History Have you received the Flu Vaccine for this season: No Have you received the Pneumonia Vaccine: Yes ROS Obtained: Yes All systems reviewed & no additional complaints except as documented Physical Exam General General appearance: alert and in no apparent distress Head Head exam: atraumatic and normocephalic Eye Eye exam: Present normal appearance, PERRL and EOMI ENT ENT exam: Present normal oropharynx and normal external ear exam Neck Neck exam: Present normal inspection and full ROM Chest Chest inspection: Present normal inspection and symmetric chest wall rise; Absent tenderness Respiratory Respiratory exam: Present normal lung sounds bilaterally; Absent respiratory distress Cardiovascular Cardiovascular exam: Present regular rate and normal rhythm Abdominal Exam Abdominal exam: Present soft; Absent distention, tenderness or guarding Extremities Exam Extremities exam: Present normal inspection; Absent edema or joint swelling Back Exam Back exam: Present normal inspection; Absent tenderness Neurological Exam Neurological exam: Present alert and oriented X3; Absent motor sensory deficit Psychiatric Psychiatric exam: Present normal affect and normal mood Skin Skin exam: Present warm, dry and normal color Lymphatic Lymphatic Findings: no adenopathy Medical Decision Making Medical Records Medical records reviewed: Yes I reviewed the patient's medical records. Screening: Per USPSTF and CDC recommendations, given the prevalence of disease in our region, it is our hospital?s policy to screen for HIV and viral Hepatitis for all patients aged 18 and over and those with ongoing risk factors. Malcolm Inquiry Pt receiving controlled substance: No Malcolm was queried for this patient: No Vital Signs: 09/02/24 03:01 09/02/24 03:08 09/02/24 06:36 Temperature 98.2 F 97.8 F Temperature Source Oral Pulse Rate 75 63 Pulse Rate [Right] 75 Respiratory Rate 18 15 Blood Pressure 113/57 L Blood Pressure [Right Arm] 167/90 H Blood Pressure Mean [Right Arm] 115 02 Sat by Pulse Oximetry 99 Oxygen Delivery Method Room Air Lab Data Lab results reviewed: Yes I reviewed the patient's lab results. Lab Results 09/02/24 03:00: WBC 12.0 H, RBC 5.57, Hgb 16.9, Hct 49.1, MCV 88.2, MCH 30.3, MCHC 34.4, RDW 13.1, Plt Count 197, MPV 11.6 H, Neut % (Auto) 64.0, Lymph % (Auto) 23.8, Harrison % (Auto) 7.0, Eos % (Auto) 3.8, Baso % (Auto) 0.8, Neut # (Auto) 7.7, Lymph # (Auto) 2.8, Harrison # (Auto) 0.8, Eos # (Auto) 0.5 H, Baso # (Auto) 0.1, D-Dimer 0.60 H, Sodium 138, Potassium 4.0, Chloride 99, Carbon Dioxide 31 H, Anion Gap 12.0, BUN 17, Creatinine 1.30 H, Estimated Creat Clear 75, Estimated GFR 57 L, Est GFR ( Amer) 68, Glucose 159 H, Calcium 10.0, Total Bilirubin 0.9, AST 30, ALT 23, Alkaline Phosphatase 59, Troponin I < 0.01, Total Protein 7.4, Albumin 4.6, Globulin 2.8, Albumin/Globulin Ratio 1.6, Lipase 117, SARS-CoV-2 (PCR) Not detected, HIV Ag/Ab Combo Qual Negative, Influenza A Untype (PCR) Not detected, Influenza Type B (PCR) Not detected 09/02/24 05:57: Troponin I < 0.01 09/02/24 03:00 09/02/24 03:00 Orders (Tests/Meds): ED MEDICATIONS Discontinued Medications Generic Name Dose Route Start Last Admin Trade Name Freq PRN Reason Stop Dose Admin Acetaminophen 1,000 mg 09/02/24 03:04 09/02/24 03:08 Acetaminophen 500mg Tab PO 09/02/24 03:05 1,000 mg ONCE ONE Administration Aspirin 324 mg 09/02/24 03:04 09/02/24 03:08 Aspirin 81mg Chewable Tablet PO 09/02/24 03:05 324 mg ONCE ONE Administration Nitroglycerin 0.4 mg 09/02/24 03:04 09/02/24 03:08 Nitroglycerin 0.4mg Sl Tablet SL 10/02/24 03:03 0.4 mg Q5MINP PRN Administration Chest Pain Ondansetron HCl 4 mg 09/02/24 03:04 09/02/24 03:09 Ondansetron 4mg/2ml Vial IV 09/02/24 03:05 4 mg ONCE ONE Administration ORDERS Category Date Time Status CXR --portable [XR chest portable] Stat Exams 09/02/24 03:04 Completed CBC w/Auto Diff [Complete Blood Count Auto Diff] Stat Lab 09/02/24 03:00 Completed CMP [Comprehensive Metabolic Panel] Stat Lab 09/02/24 03:00 Completed D-Dimer Stat Lab 09/02/24 03:00 Completed HIV Combo Stat Lab 09/02/24 03:00 Completed Hep C Ab with Reflex to RNA Stat Lab 09/02/24 03:00 Received Lipase Stat Lab 09/02/24 03:00 Completed Rapid PCR Covid and Flu A/B Stat Lab 09/02/24 03:00 Completed Troponin I Q3H Lab 09/02/24 03:00 Completed Troponin I Q3H Lab 09/02/24 05:57 Completed ECG Data Tracing #1: I reviewed this ECG and interpreted as documented below: Sinus rhythm, rate of 73, first-degree AV block noted, mild QRS prolongation noted, no ST elevation meeting criteria, no ST depression, no T wave changes. Looks very similar to prior. ECG initial impression date: 09/02/24 ECG initial impression time: 02:59 HEART Score History (anamnesis): Moderately suspicious ECG: Normal Age: >65 years Risk factors: Atherosclerosis history Troponin: </= normal limit HEART Score: 5 Medical Decision Narrative: 59-year-old male with history of coronary artery disease status post CABG and stents presents with a few hours of chest tightness and nausea. History was obtained via interactive discussion with patient, chart review. On arrival, patient is [afebrile, hemodynamically stable, satting appropriately, alert, oriented x4, GCS 15], moving all extremities spontaneously. Full physical exam performed and significant for clear lungs bilaterally, no abdominal tenderness Differential includes but is not limited to ACS, PE, pneumonia, musculoskeletal pain, GERD. Patient was given full dose aspirin, nitroglycerin, Tylenol for symptomatic management and correction of underlying abnormalities. Workup initiated including CBC CMP troponin D-dimer chest x-ray EKG. On re-evaluation, patient reports symptomatic improvement. Laboratory workup independently interpreted by me and significant for negative troponin, negative D-dimer by years criteria, no significant electrolyte derangement. Repeat troponin negative.. Imaging independently interpreted by me and significant for no focal opacity. See radiology read for full review of final results. EKG independently interpreted by me and significant for sinus rhythm with first- degree block similar to prior. Admission was considered, but deemed unnecessary due to negative troponin x 2, symptomatic improvement, stable EKG from prior. Low concern for emergent condition at this time given negative workup and symptomatic improvement. Patient was discharged in stable condition with return precautions. Procedures Risk/Benefits of Procedure(s) Were Explained: Yes Critical Care Critical Care Time Critical Care Time: No
[2024-09-02 03:08] VITALS: PULSE 75
[2024-09-02] MEDS: NITROGLYCERIN 0.4MG SL TABLET 0.4 MG SL (03:08)
[2024-09-02] MEDS: ASPIRIN 81MG CHEWABLE TABLET 324 MG PO (03:08)
[2024-09-02] MEDS: ACETAMINOPHEN 500MG TAB 1000 MG PO (03:08)
[2024-09-02] MEDS: ONDANSETRON 4MG/2ML VIAL 4 MG IV (03:09)
[2024-09-02 03:12] LABS: Basophils # 0.1 K/mm3 (0-0.2); Basophils % 0.8 % (0.1-2.0); Eosinophils # 0.5 K/mm3 (0.0-0.4); Eosinophils % 3.8 % (0.1-12.0); Hematocrit 49.1 % (42.0-52.0); Hemoglobin 16.9 g/dL (14.1-18.0); Lymphocytes # 2.8 K/mm3 (0.7-4.5); Lymphocytes % 23.8 % (10-50); Mean Corpuscular HGB Conc 34.4 g/dL (31.8-35.4); Mean Corpuscular Hemoglobin 30.3 pg (27.0-31.2); Mean Corpuscular Volume 88.2 fl (80-94); Mean Platelet Volume 11.6 fl (7.4-10.4); Monocytes # 0.8 K/mm3 (0.1-1.0); Neutrophils # 7.7 K/mm3 (1.8-7.8); Platelet Count 197 K/mm3 (142-424); Red Blood Count 5.57 M/mm3 (4.60-6.20); Red Cell Distribution Width 13.1 % (11.5-17.5)
[2024-09-02 03:17] LABS: Albumin Level 4.6 g/dl (3.5-5.0); Chloride 99 mmol/L (98-107); Sodium 138 mmol/L (136-145)
[2024-09-02 03:19] LABS: Blood Urea Nitrogen 17 mg/dl (9-20); Creatinine Clearance Estimated 75 mL/min (50-200); Estimated Glomerular Filt Rate 57 ml/min (>60); GFR (African American) 68 ML/MIN (>60)
[2024-09-02 03:20] LABS: Alanine Aminotransferase 23 U/L (12-78); Albumin/Globulin Ratio 1.6 (1.1-1.8); Alkaline Phosphatase 59 U/L (38-126); Aspartate Amino Transferase 30 U/L (17-59); Bilirubin,Total 0.9 mg/dl (0.2-1.3); Carbon Dioxide 31 mmol/L (22.0-30.0); Globulin 2.8 g/dL (1.3-3.2); Glucose 159 mg/dl (74-100); Total Protein,Serum 7.4 g/dl (6.3-8.2)
[2024-09-02 03:35] LABS: Coronavirus 19, PCR Not Detected (NotDetected); Influenza A, PCR Not Detected (NotDetected); Influenza B, PCR Not Detected (NotDetected)
[2024-09-02 04:08] LABS: Lipase 117 U/L (23-300)
[2024-09-02 04:21] LABS: Troponin I < 0.01 ng/ml (0.00-0.034)
[2024-09-02 04:37] LABS: HIV Combo NEGATIVE (Negative)
[2024-09-02 06:28] LABS: Troponin I < 0.01 ng/ml (0.00-0.034)
[2024-09-02 06:36] VITALS: BP 113/57; PULSE 63; RESP 15; TEMP 36.6; O2SAT 93
[2024-09-03 06:10] LABS: HCV Ab Non Reactive (Non Reactive)
== END 2024-09-02 06:37 | disposition home or self-care (01) ==
PROVIDERS: Emergency Provider Emergency Medicine; PCP Nurse Practitioner Family
DX: R07.9 Chest pain, unspecified (principal); R11.0 Nausea
CPT/HCPCS: 71045; 80053; 83690; 84484; 85025; 85378; 86803; 87389; 87636; 93005; 96374; 99284; J2405

== ENCOUNTER 2024-09-06 10:12 | Outpatient (CLI) | payer MEDICARE, MEDICAID, SELFPAY | END 2024-09-06 23:59 | disposition home or self-care (01) | LOC: RT 10:13 | PROVIDERS: PCP Nurse Practitioner Family; Visit Provider Physician Assistant | DX: R00.2 Palpitations (principal) | CPT/HCPCS: 93225; 93227 ==

== ENCOUNTER 2024-09-08 08:33 | Day surgery (SDC) | payer MEDICARE, MEDICAID, SELFPAY ==
[2024-09-08] VITALS (13 sets, daily range): BP systolic 102–159; BP diastolic 70–86; PULSE 76–101; RESP 18–20; O2SAT 90–97; BMI 31.7
--- NOTE | 2024-09-08 07:39 | IR_ITS ---
APPROVED REPORT Patient Location: Outpatient PROCEDURES Selective coronary angiogram Selective engagement left internal mammary artery to the LAD Selective engagement of saphenous vein graft to circumflex artery Selective engagement of saphenous vein graft to the right coronary Drug-eluting stent deployment to the circumflex artery INDICATION Coronary artery disease, Angina pectoris, History of coronary bypass surgery Informed consent was obtained prior to the procedure. COMPLICATIONS NONE Estimated Blood Loss: LESS THAN 10 ML TECHNIQUE One percent lidocaine was used to anesthetize the right groin. The right femoral artery was accessed via the Seldinger technique. A 4-Martiniquais sheath was placed in the right femoral artery. The JL-4 and JR-4 catheter was also used to perform left heart catheterization left ventriculogram and selective coronary angiogram. The JR4 catheter was used to perform selective engagement of the left internal mammary artery as well as the 2 vein grafts. At the end the procedure the 5 Martiniquais sheath was exchanged for a 6 Martiniquais sheath therapeutic heparin was administered. The JL 4 guide catheter was placed in left main artery followed by Choice PT extra-support wire placed distally in the circumflex artery. A 2 mm x 30 mm resolute [place] stent was deployed at 20 usman reducing the stenosis to 0% MACKENZIE-3 flow was present before and after the procedure. At the end procedure the apparatus was removed the groin is reprepped closure change sheath was removed and hemostasis was achieved using Perclose device patient was transferred to the postop holding area in stable condition ANGIOGRAPHIC RESULTS The left main artery Normal The left anterior descending artery Is proximally patent and has a 50% stenosis. The LAD is then occluded after a patent small first diagonal artery The circumflex artery Gives rise to a small ramus intermedius which is widely patent. The circumflex artery has mid vessel 40 and 50% stenosis with a 70 to 80% stenosis in the proximal portion of the terminal obtuse marginal artery followed by stent which is widely patent The right coronary artery Ostially occluded The HARRELL ventriculogram reveals Not performed The left ventricular end-diastolic pressure Not measured MARTINEZ to LAD widely patent Saphenous to circumflex artery ostially occluded Saphenous to right coronary artery ostially occluded IMPRESSION Coronary disease as described above Successful stent to the terminal obtuse marginal artery severe disease reduced to 0% with 1 drug-eluting stent Patent MARTINEZ to LAD PLAN 1. Dual antiplatelet therapy 2. Beta-zohaib therapy to reduce heart rate and maximize antianginal medications 3. Cardiac rehabilitation 4. Risk factor modification 5. LDL less than 55 to be achieved with high intensity statin Electronically signed by : Eleazar Beal MD 09/08/2024 15:37:59
[2024-09-08 09:19] LABS: Basophils # 0.1 K/mm3 (0-0.2); Basophils % 0.7 % (0.1-2.0); Eosinophils # 0.4 K/mm3 (0.0-0.4); Eosinophils % 6.1 % (0.1-12.0); Hematocrit 48.4 % (42.0-52.0); Hemoglobin 16.7 g/dL (14.1-18.0); Lymphocytes # 1.9 K/mm3 (0.7-4.5); Mean Corpuscular HGB Conc 34.5 g/dL (31.8-35.4); Mean Corpuscular Hemoglobin 30.5 pg (27.0-31.2); Mean Corpuscular Volume 88.5 fl (80-94); Mean Platelet Volume 12.2 fl (7.4-10.4); Monocytes # 0.6 K/mm3 (0.1-1.0); Neutrophils # 4.1 K/mm3 (1.8-7.8); Neutrophils % 57.8 % (37.0-80.0); Platelet Count 155 K/mm3 (142-424); Red Blood Count 5.47 M/mm3 (4.60-6.20); Red Cell Distribution Width 13.2 % (11.5-17.5)
[2024-09-08 09:25] LABS: Chloride 103 mmol/L (98-107); Potassium 4.7 mmoL/L (3.5-5.1); Sodium 139 mmol/L (136-145)
[2024-09-08 09:28] LABS: Anion Gap 15.7 mEq/L (5-15); Blood Urea Nitrogen 11 mg/dl (9-20); Calcium 9.6 mg/dl (8.4-10.2); Carbon Dioxide 25 mmol/L (22.0-30.0); Creatinine Clearance Estimated 105 mL/min (50-200); Estimated Glomerular Filt Rate 86 ml/min (>60); GFR (African American) 105 ML/MIN (>60); Glucose 161 mg/dl (74-100)
[2024-09-08] MEDS: LIDOCAINE 1% 10ML MDV 20 ML IJ (10:40)
[2024-09-08] MEDS: diphenhydrAMINE 50MG/ML VIAL 50 MG IV (10:41)
[2024-09-08] MEDS: HEPARIN 1,000 UNITS/500ML NS (CATH LAB) 3000 UNIT IV (10:41)
[2024-09-08] MEDS: 0.9 % SODIUM CHLORIDE 500 ML 25 ML IV (10:42)
[2024-09-08] MEDS: HEPARIN 1,000 UNITS/ML 10ML VIAL (CATH LAB) 10000 UNIT IV (10:49)
[2024-09-08] MEDS: MIDAZOLAM HCL 1MG/ML 5ML VIAL 1 MG IV (10:58)
[2024-09-08] MEDS: FENTANYL 100MCG/2ML VIAL 50 MCG IV (10:58)
[2024-09-08] MEDS: CLOPIDOGREL 75MG TAB 75 MG PO (11:05)
[2024-09-08] MEDS: METOPROLOL TARTRATE 50MG TABLET 50 MG PO (11:14)
[2024-09-08] MEDS: ASPIRIN 81MG CHEWABLE TABLET 81 MG PO (11:14)
[2024-09-08] MEDS: IOPAMIDOL-370 (76%);100ML BOTTLE 105 ML IV (13:43)
== END 2024-09-08 14:22 | disposition home or self-care (01) ==
PROVIDERS: PCP Nurse Practitioner Family; Visit Provider Internal Medicine
DX: I25.118 Atherosclerotic heart disease of native coronary artery with other forms of angina pectoris (principal); I12.9 Hypertensive chronic kidney disease with stage 1 through stage 4 chronic kidney disease, or unspecified chronic kidney disease; N18.2 Chronic kidney disease, stage 2 (mild); I50.9 Heart failure, unspecified; I42.9 Cardiomyopathy, unspecified; I77.1 Stricture of artery; E78.2 Mixed hyperlipidemia; R00.2 Palpitations; R94.31 Abnormal electrocardiogram [ECG] [EKG]; Z79.899 Other long term (current) drug therapy; Z95.1 Presence of aortocoronary bypass graft; Z95.5 Presence of coronary angioplasty implant and graft
CPT/HCPCS: 80048; 85025; 92928; 93459; 99152; 99153; C1725; C1760; C1769; C1874; C1894; C9600; J1200; J1644; J2250; J3010; Q9967

== ENCOUNTER 2024-09-13 08:39 | Outpatient (CLI) | payer MEDICARE, MEDICAID, SELFPAY ==
[2024-09-13 09:05] LABS: Basophils % 0.7 % (0.1-2.0); Eosinophils # 0.4 K/mm3 (0.0-0.4); Eosinophils % 7.1 % (0.1-12.0); Hematocrit 43.4 % (42.0-52.0); Hemoglobin 14.9 g/dL (14.1-18.0); Lymphocytes # 1.6 K/mm3 (0.7-4.5); Lymphocytes % 27.5 % (10-50); Mean Corpuscular HGB Conc 34.3 g/dL (31.8-35.4); Mean Corpuscular Hemoglobin 30.7 pg (27.0-31.2); Mean Corpuscular Volume 89.3 fl (80-94); Mean Platelet Volume 11.9 fl (7.4-10.4); Monocytes # 0.5 K/mm3 (0.1-1.0); Neutrophils # 3.3 K/mm3 (1.8-7.8); Neutrophils % 56.2 % (37.0-80.0); Platelet Count 164 K/mm3 (142-424); Red Blood Count 4.86 M/mm3 (4.60-6.20); Red Cell Distribution Width 13.2 % (11.5-17.5); White Blood Count 5.9 K/mm3 (4.8-10.8)
[2024-09-13 09:52] LABS: Chloride 105 mmol/L (98-107); Potassium 3.7 mmoL/L (3.5-5.1); Sodium 138 mmol/L (136-145)
[2024-09-13 09:55] LABS: Anion Gap 7.7 mEq/L (5-15); Blood Urea Nitrogen 13 mg/dl (9-20); Calcium 9.8 mg/dl (8.4-10.2); Carbon Dioxide 29 mmol/L (22.0-30.0); Estimated Glomerular Filt Rate 86 ml/min (>60); GFR (African American) 105 ML/MIN (>60); Glucose 117 mg/dl (74-100)
== END 2024-09-13 23:59 | disposition home or self-care (01) ==
LOC: LAB 08:40
PROVIDERS: PCP Nurse Practitioner Family; Visit Provider Internal Medicine
DX: I10 Essential (primary) hypertension (principal); Z95.5 Presence of coronary angioplasty implant and graft
CPT/HCPCS: 36415; 80048; 85025